=== PATIENT | male | born 1925 | race Caucasian/White ===

== ENCOUNTER 2016-08-16 10:08 | Inpatient (IN) | payer MEDICARE, OTHER ==
[~2016-08-16] VITALS: Ht 172.7 cm; Wt 83.2 kg
[2016-08-16] VITALS (11 sets, daily range): BP systolic 117–183; BP diastolic 56–74; PULSE 68–94; RESP 15–22; O2SAT 88–100
[~2016-08-16 10:08] MED LIST: ALBU8.5H4 IH; ASPI-628 PO; ATOR20TA PO; AZIT250T4 PO; CHOL100043 PO; HYDR-4003 PO; LEVO100T97 PO; METO50TA3 PO; OMEP-113 PO; VITA1CAP PO
--- NOTE | 2016-08-16 10:16 | ED.REPORT ---
HPI-Abd Pain M 40 and Over Date of Service Aug 16, 2016 ED Provider: Nidia Pineda MD The patient is a 89 year old male w/ a hx of HTN who presents to the ED via EMS due to abdominal pain onset today 2 hrs ago. He was eating breakfast when he began experiencing the pain. He had a previous aortic bypass. He rates pain at 8 /10 in severity. Pt denies chest pain. He lives in the non-assisted [facility]. Nursing Notes Stated Complaint: ABDOMINAL PAIN Chief Complaint: Male Abdominal Pain Nursing Notes Reviewed: Yes Allergies: Coded Allergies: No Known Allergies (Verified , 12/13/13) Scheduled Aspirin (Aspir 81) 81 Mg Tablet.dr 81 MG PO QAM Atorvastatin Calcium (Atorvastatin Calcium) 40 Mg Tablet 40 MG PO HS Azithromycin (Zithromax (Z-Cesario)) 250 Mg Tablet 250 MG PO DAILY Cholecalciferol (Vitamin D3) (Vitamin D) 1,000 Unit Tablet 1,000 UNIT PO DAILY Levothyroxine (Levothyroxine) 112 Mcg Tablet 112 MCG PO DAILY Metoprolol Tartrate (Metoprolol Tartrate) 25 Mg Tablet 25 MG PO BID Scheduled PRN Albuterol HFA (Albuterol HFA) 8.5 Gm Hfa.aer.ad 1 PUFF IH Q4 PRN PRN For Wheezing General Time Seen by MD: 10:16 Chief Complaint Abdominal pain Hx Obtained From: Patient Arrived By: Ambulance Sudden in Onset?: Yes Onset Occurred: 1 - 4 hours ago Context of Onset: Eating Symptom Duration: Since onset Progression since Onset: Unchanged Location: : Abdomen lower: Abdomen upper Quality: Painful Radiation: : Does not radiate Severity: Current: Pain level 8 out of 10 Recent Healthcare: No recent doctor visit, No recent hospitalization Similar Sx Previous: No Past Medical History Past Medical History DNR per polst form. Would agree to surgery if required. Reports: Hyperlipidemia, Hypertension Reports: Thyroid disease Past Surgical History hernia abdominal surgery aortic bypass right coroded surgery Social History Alcohol Use: 1-3 per week Ambulatory Status Independent Review of Systems Cardiovascular: Denies: Chest pain GI: Reports: Abdominal pain Complete sys rev & neg: except as marked. Physical Exam Physical Exam Notes: Initial Vital Signs Vital Signs (First) Date Time Temp Pulse Resp B/P Pulse Ox O2 Delivery O2 Flow Rate FiO2 08/16/16 10:09 36.4 68 21 183/58 98 Room Air 08/16/16 11:37 4 Initial VS: Reviewed Head / Eyes: Atraumatic, Normocephalic, PERRL ENT: Mucous membranes moist, Conjunctiva normal, No scleral icterus Neck: Supple, Non-tender, Full range of motion Skin: Warm, Dry, No cyanosis Neurologic: Alert, Oriented, Nonfocal Psychiatric: Mood/affect normal, Behavior normal, Normal thought content General/Constitutional: Awake, Alert, Cooperative Respiratory / Chest: No respiratory distress, No rales, No rhonchi minor bilateral crackles in lungs Cardiovascular: Regular rhythm, Heart sounds NL, No murmurs Heart Rate / Rhythm: Positive: Bradycardia Bowel Sounds / Distention: Positive: Bowel sounds hypoactive slightly tender periumbical tender into right middle portion of belly no rebound or guarding no abdominal bruise no abdominal masses Lower Extremity / Pelvis / MS: Atraumatic, Inspection NL, No swelling, No erythema, No edema good right inguinal pulse do not palpate a left inguinal pulse but good color to leg Interpretation & Diagnostics Lab Results Interpretation Result Diagram: 08/16/16 1038 08/16/16 1038 Test 08/16/16 10:38 White Blood Count 12.4th/mm3 (3.8-10.1) Red Blood Count 3.73mil/mm3 (4.40-5.80) Hemoglobin 12.5g/dL (13.8-17.2) Hematocrit 39.2% (41.0-50.0) Mean Corpuscular Volume 105.1fL (81-100) Mean Corpuscular Hemoglobin 33.5pg (27.0-35.0) Mean Corpuscular Hemoglobin Concent 31.9% (32.0-37.0) Red Cell Distribution Width 13.0% (12.3-15.4) Platelet Count 181bil/L (150-400) Neutrophils (%) (Auto) 42.1% (40-74) Lymphocytes (%) (Auto) 49.3% (14-46) Monocytes (%) (Auto) 6.5% (4-12) Eosinophils (%) (Auto) 1.5% (0-5) Basophils (%) (Auto) 0.5% (0-3) Sodium Level 139mEq/L (134-144) Potassium Level 4.5mEq/L (3.5-5.2) Chloride Level 101mEq/L (97-108) Carbon Dioxide Level 24mmol/L (18-29) Blood Urea Nitrogen 20mg/dL (8-27) Creatinine 1.34mg/dL (0.76-1.27) Estimat Glomerular Filtration Rate 53mL/min (>59) Glucose Level 128mg/dL (60-99) Calcium Level 8.6mg/dL (8.5-10.1) Magnesium Level 2.0mg/dL (1.6-2.6) Total Bilirubin 0.8mg/dL (0.0-1.2) Aspartate Amino Transf (AST/SGOT) 40U/L (0-50) Alanine Aminotransferase (ALT/SGPT) 24U/L (0-44) Alkaline Phosphatase 112U/L (25-160) Total Protein 6.8g/dL (6.4-8.4) Albumin 3.6g/dL (3.4-5.0) Lipase 1911U/L (13-60) ECG Interpretation Time: 10:56 Interpreted by: ED physician Normal ECG Interpretation: Normal rate (68), Normal sinus rhythm, No acute ischemic changes, Normal QRS, Normal axis, Normal intervals, No change from prior ECGs, Adequate tracing CT Abd / Pelvis Interpretation IMPRESSION: 1. Findings most adjustment of acute pancreatitis; clinical and laboratory confirmation is recommended. No evidence of marilu-pancreatic abscess, nor focal fluid collection. 2. Asbestos-related pleural disease. 3. Severe right renal atrophy. Dictated by: Kathleen Hodge M.D. on 08/16/2016 at 12:17 Approved by: Kathleen Hodge M.D. on 08/16/2016 at 12:22 Study type: Abdominal CT no contrast Interpretation / Wet Read by: Discussed w radiologist Re-Eval/Medical Decision Med Decision/Clinical Course 11-year-old gentleman presents with acute onset abdominal pain. Labs and CT scan are all consistent with pancreatitis. CT scan does not suggest an obstructing mass nor gallstone pancreatitis. Medications include metoprolol thyroid and atorvastatin none of which occurred glaringly obvious for a cause of his pancreatitis. We will be admitted for fluids and nausea control pain control and bowel rest. CT scan does not suggest abscess or pseudo abscess. Time of Eval: 13:17 Patient Status: Condition unchanged Re-Evaluation/Progress Note: Pt rechecked. Dry mouth, O2 sats 90%, still having pain w/ dilaudid. Informed pt of diagnosis of pancreatitis and plan for admission. Consultation : Referral / Consult Name: Luiz Bergman DO Consulted With: Hospitalist Call Returned at: 13:36 Net Lead Architect: Agrees with eval, Agrees with plan Note: Case discussed. Dr. Bergman agrees with plan and accepts admit. Counseled Regarding: Diagnosis, Lab results, Need for admission Discharge & Departure Primary Impression: Pancreatitis Chronicity: acute Pancreatitis type: unspecified pancreatitis type Qualified Code: K85.9 - Acute pancreatitis, unspecified Disposition: ADMITTED TO HOSPITAL Vital Signs - All Vital Signs Date Time Temp Pulse Resp B/P Pulse Ox O2 Delivery O2 Flow Rate FiO2 08/16/16 13:03 78 19 137/61 94 Room Air 08/16/16 12:10 79 15 126/56 88 Nasal Cannula 4 08/16/16 11:37 70 16 144/62 93 4 08/16/16 10:44 70 22 177/63 96 Room Air 08/16/16 10:09 36.4 68 21 183/58 98 Room Air )( All Prior VS Reviewed: Yes Condition: Stable Referrals: Bianca Mccall MD (PCP) Scribe Attestation Portion of this note were transcribed by Luh Hussein. I, Dr. Pineda, personally performed the history, physical exam, and medical decision-making: I reviewed and confirmed the accuracy for the information in the transcribed note. Signed by: rebeka Canales, 08/16/16 1330 copies to: Bianca Mccall MD, Shawna L MD Aug 16, 2016 10:16 Luh Hussein Aug 16, 2016 10:25
[2016-08-16] MEDS ORDERED: 0.9% Sodium Chloride 1,000 ML IV ONE (10:35)
[2016-08-16 10:41] LABS: BASOPHILS % (AUTO) 0.5 % (0-3); EOSINOPHILS % (AUTO) 1.5 % (0-5); MONOCYTES % (AUTO) 6.5 % (4-12); Mean Corpuscular Hemoglobin 33.5 pg (27.0-35.0); Mean Corpuscular Volume 105.1 fL (81-100); NEUTROPHILS % (AUTO) 42.1 % (40-74); Platelet Count 181 bil/L (150-400)
[2016-08-16] MEDS: HYDROmorphone 0.5 mg/0.5 mL iSecure Syringe IVPUSH PRN ×2 (10:44→11:44)
[2016-08-16] MEDS: Ondansetron 2 mg/mL 2 mL Inj IVPUSH PRN ×4 (10:44→23:10)
--- NOTE | 2016-08-16 12:24 | DRSVH ---
PROCEDURE: CT ABDOMEN AND PELVIS WITH CONTRAST ([id number]) INDICATIONS: acute onset abdominal pain TECHNIQUE: After the administration of intravenous contrast, 5 mm thick sections acquired from the diaphragm to the symphysis. 5 mm coronal and sagittal reformats were acquired. For radiation dose reduction, the following was used: automated exposure control, adjustment of mA and/or kV according to patient siz e. COMPARISON: [facility], CT, ABD/PELVIS W/CON (PN), 12/02/2008, 17:21. FINDINGS: Image quality: Excellent. ABDOMEN: Lung bases: Bilateral right greater than left pleural calcifications are present, in a configuration suggestive of asbestos related pleural disease. Lung bases are otherwise clear. Heart size is normal . Solid organs: Liver and spleen are normal in size and enhancement. Gallbladder is within normal cohen its. Biliary system is non dilated. Pancreas enhances normally. There is mild peripancreatic fat s tranding. Small amount of peripancreatic fluid and left anterior pararenal space fluid is present, ne w since the prior examination. No adrenal nodules. No change in severe right renal atrophy. Left kidn ey is within normal limits. Peritoneum and bowel: Bowel loops demonstrate normal wall thickness and caliber. No free fluid or a ir. Nodes and vessels: No retroperitoneal or mesenteric adenopathy by size criteria. Aorta and inferior vena cava are normal in size. Aortobifemoral bypass graft has been performed. Miscellaneous: No ventral hernias. PELVIS: Genitourinary: Bladder wall thickness is normal. Miscellaneous: No inguinal hernias or adenopathy. Bones: No suspicious bony lesions. N mild chronic L1 compression fracture. o acute vertebral body c ompression fractures. IMPRESSION: 1. Findings most adjustment of acute pancreatitis; clinical and laboratory confirmation is recommende d. No evidence of marilu-pancreatic abscess, nor focal fluid collection. 2. Asbestos-related pleural disease. 3. Severe right renal atrophy. Dictated by: Kathleen Hodge M.D. on 08/16/2016 at 12:17 Approved by: Kathleen Hodge M.D. on 08/16/2016 at 12:22
[2016-08-16] MEDS ORDERED: LEVO112T4 PO (13:33)
[2016-08-16] MEDS ORDERED: ATOR40TA69 PO (13:33)
[2016-08-16] MEDS ORDERED: METO25TA6 PO (13:33)
[2016-08-16] MEDS ORDERED: ASPI-973 PO (13:34)
[2016-08-16] MEDS ORDERED: Polyethylene Glycol (PEG) 17 Gm Powder PO PRN (13:40)
[2016-08-16] MEDS ORDERED: Alum-Mag Hydrox-Simeth 30 mL Suspension PO PRN (13:40)
[2016-08-16] MEDS ORDERED: Acetaminophen IV 1,000 MG in IV Premix 1 EACH IV ONE (14:00)
[2016-08-16] MEDS: fentaNYL-PF 50 mCg/mL 2 mL Inj IVPUSH PRN ×4 (14:03→22:53)
[2016-08-16] MEDS: 0.9% Sodium Chloride 1,000 ML IV SCH (15:14)
--- NOTE | 2016-08-16 15:16 | PCM.HPMED ---
Subjective Date of Service Aug 16, 2016 Primary Provider: Admitting Physician: Luiz Bergman DO Primary Care Physician: Ankit Eaton MD Attending Physician: Luiz Bergman DO Chief Complaint: Abdominal pain History of Present Illness: Vicenta Vaughan is an 89 year old man with past medical history significant for asbestosis, aortic bypass at the age of 37, renal artery stent for renal artery stenosis, hypothyroidism, atherosclerotic cerebrovascular disease, status post right carotid endarterectomy who presented to the [facility] ED via EMS due to severe abdominal pain that started at 0800 today. The patient was reading the paper when he started to an acute onset of severe pain that he cannot describe very well. He does not know the quality of the pain and denies any radiation. He notes nausea and vomiting, although the vomiting occurred after he received pain medication. He has no appetite and denies any fevers or chills. The pain is not relieved with any position. He notes that his pain is epigastric and he has never experienced this pain before. He denies any episodes of more minor pain that lead up to the event. He denies any history of gallstones. He does have a bourbon nightly. He denies any medications changes. He lives in the [facility]city hospital section [facility]. In the ED his vitals were T 36.4 HR 68 RR 21 BP 183/58 and O2 sat 98% on RA. CT of abdomen was consistent with pancreatitis and his labs were significant for a lipase of 1911. He was given hydrocodone and fentanyl which made him sedated and dropped his O2 saturation. Review of Systems: A comprehensive review of systems was conducted with the patient and found to be negative except as above in the History of Present Illness. Allergies Coded Allergies: No Known Allergies (Verified , 08/16/16) Home Medications Vicenta Vaughan [id number] 06/10/2016 01:35 PM 06/15 Medication Name Directions aspirin 81 mg Tab take 1 tablet (81MG) by ORAL route every day atorvastatin 40 mg tablet TAKE ONE TABLET DAILY (REPLACES SIMVASTATIN) levothyroxine 100 mcg tablet take 1 tablet by oral route every day metoprolol tartrate 50 mg tablet take 0.5 tablet by ORAL route 2 times every day with meals for heart Super B-50 Complex capsule 1 daily Vitamin D 1,000 unit Tab 1 capsule PO daily [facility] Asbestosis. Renal artery stent for renal artery stenosis about 10 years ago. Apparently, he had renal vascular hypertension. Hypothyroidism. Surgical History Aortic bypass at the age of 37. Atherosclerotic cerebrovascular disease, status post right carotid endarterectomy by Dr. Benjy Hwang Family History Father of old age. Mother of pneumonia. Social History Hx Alcohol Use: Yes (1-3 per week) Hx Substance Use: No Hx Tobacco Use: No Smoking Status: Former Smoker Exam Vital Signs Vital Sign - Last Date Time Temp Pulse Resp B/P Pulse Ox O2 Delivery O2 Flow Rate FiO2 08/16/16 14:59 94 08/16/16 14:20 36.4 20 133/68 100 Room Air 6 Exam General: No acute distress, well-developed, well-nourished, appropriately interactive. Somewhat sedated. Easy to awake by drifts off to sleep when not stimulated. HEENT: Normocephalic, atraumatic. External ears without defect. Pupils equal, round, and reactive to light and accommodation. Anicteric sclerae, moist conjunctivae, and no lid lag. Oropharynx free of erythema and cobble stoning with dry mucosa. Mild skin tenting. Neck: Supple with full range of motion. No jugular venous distension. No bruits. No lymphadenopathy or thyromegaly. Cardiovascular: Regular rate and rhythm with no murmurs, rubs, or gallops appreciated Pulmonary: Clear to auscultation bilaterally with no crackles, wheezes, or rhonchi. Normal respiratory effort with no use of accessory muscles. Abdomen: Hyperactive bowel tones present. Soft, nondistended. Tender to even mild palpation over the epigastrium. No hepatosplenomegaly or masses appreciated. Extremities: No clubbing, cyanosis, edema, or lymphadenopathy appreciated. Skin: Normal temperature, turgor, and texture; no rash, ulcers, or subcutaneous nodules appreciated. Neurological: Cranial nerves grossly intact. Normal muscle strength, tone, and bulk. Reflexes, coordination, and sensory function within normal limits. No known gait impairment. Psychiatric: Normal mood and affect. Alert and oriented to person, place, and time. Lab and Diagnostics Labs Lipase: 191 Result Diagram: 08/16/16 1038 08/16/16 1038 X-Rays, CTs and MRIs CT ABDOMEN AND PELVIS WITH CONTRAST IMPRESSION: 1. Findings most adjustment of acute pancreatitis; clinical and laboratory confirmation is recommended. No evidence of marilu-pancreatic abscess, nor focal fluid collection. 2. Asbestos-related pleural disease. 3. Severe right renal atrophy. Dictated by: Kathleen Hodge M.D. on 08/16/2016 at 12:17 Assessment & Plan Vicenta Vaughan is an 89 year old man with past medical history significant for asbestosis, aortic bypass at the age of 37, renal artery stent for renal artery stenosis, hypothyroidism, atherosclerotic cerebrovascular disease, status post right carotid endarterectomy who presented to the [facility] ED via EMS due to severe abdominal pain that started at 0800 today. Acute pancreatitis -Lipase significantly elevated and evidence of pancreatitis on CT, however etiology is not quite clear. The patient does admit to some alcohol use but his LFTs are normal and his liver contour is normal as well. Of note his MCV is quite elevated which can indicated megaloblastic anemia but can also be seen in non-megaloblastic anemia secondary to direct toxicity of EtOH on the bone marrow. He denies any medication changes and none of his chronic medications seem to be culprits for pancreatitis. He does not have any biliary stones but it is possible he has passed one, albeit unlikely. Possibly viral. -Will continue to fluid resuscitation at 150 cc/hr. His Hct is <40 which is reassuring. No signs of CHF. -He is currently NPO but will advance diet when he begins to feel hunger. -Continue Zofran for nausea management. Will consider NGT if nausea is not well controlled. -No indication for antibiotics at this time. -Pain management does pose some difficulty as his respiratory status seems to decline with narcotics -Will reduce fentanyl to 12.5 mcg since 50 mcg sedated him pretty significantly Adverse medication reaction -Patient became very somnolent in response to narcotics -Will reduce dosing, discussed minimal doses with RN -PRN order of Narcan in case his respiratory status declines -Continuous pulse oxymetry -ABG History of pulmonary asbestosis -Chest X ray Hypothyroidism -Will resume levothyroxine when able to tolerate PO Atherosclerotic cerebrovascular disease, status post right carotid endarterectomy -Continue statin and ASA when able to tolerate PO. History of renal artery stent for renal artery stenosis -Likely his elevated Cr is due to essentially a solitary kidney since one of his kidneys has atrophied. Chronic kidney disease -Continue to monitor Cr -Baseline appears to be around 1.2 per outpatient records from 2013 CODE STATUS: DNR/DNI Patient is admitted under inpatient status with expected length of stay greater than 2 midnights due to severity of presenting symptoms, risk of adverse event, and complexity of treatment plan. Time spent 55 minutes Attending Statement I have seen and evaluated patient at bedside in addition to directly supervising care provided by resident physician. I agree with above documentation. Deanna Tang DO Aug 16, 2016 15:16 Luiz Bergman DO Aug 16, 2016 16:26
--- NOTE | 2016-08-16 15:26 | NUR ---
Arrival to [facility] Pt goes to ER today with sharp 8-10/10 pain in the abdomen after eating breakfast this morning. Pt has associated nausea and vomiting. No Fever, chills noted. Pt was found to have pancreatitis. Pt denies having this before. Pt placed on continuos oximeter for respiratory depression post opioids. Pt placed on 4LNC, as his oxygen sats dropped into the 70's from Fentanyl.
[2016-08-16] MEDS ORDERED: Naloxone 0.4 mg/mL 10 mL Inj IVPUSH PRN (15:55)
--- NOTE | 2016-08-16 17:04 | DRSVH ---
PROCEDURE: X-RAY CHEST ONE VIEW, PORTABLE ([id number]) INDICATIONS: asbestosis history, hypoxemia. TECHNIQUE: One view of the chest was acquired. COMPARISON: [facility], CR, XR CHEST 2VW, FINDINGS: Surgical changes and devices: panel monitor leads are seen over the chest. There prominent calcifie d plaques in both sides of the chest. There is increased density at the lung bases next patchy streak y appearance with some indistinctness of the right hemidiaphragm and lateral left hemidiaphragm consi stent with pneumonias. Lungs and pleura: No pleural effusions or pneumothorax. Lungs are clear. Mediastinum: Mediastinal contours appear normal. Heart size is normal. Bones and chest wall: No suspicious bony lesions. Overlying soft tissues appear unremarkable. IMPRESSION: Changes suggestive of bibasilar infiltrates. Prominent calcific plaquing. Old asbestos exposure is likely. Dictated by: Kenny Basilio M.D. on 08/16/2016 at 17:02 Approved by: Kenny Basilio M.D. on 08/16/2016 at 17:04
[2016-08-16 18:22] LABS: INR 0.97 ratio
[2016-08-16 19:00] LABS: APPEARANCE,URINE CLEAR (CLEAR,HAZY); COLOR,URINE YELLOW (YELLOW); OCCULT BLOOD,URINE SMALL (NEGATIVE); UROBILINOGEN,URINE NORMAL (NORMAL)
[2016-08-17] MEDS: 0.9% Sodium Chloride 1,000 ML IV SCH ×6 (00:55→20:52)
[2016-08-17] MEDS: Ondansetron 2 mg/mL 2 mL Inj IVPUSH PRN ×2 (04:59→12:40)
[2016-08-17 05:13] VITALS: BP 136/66; PULSE 100; RESP 20; O2SAT 97
--- NOTE | 2016-08-17 05:41 | NUR ---
pain/nausea/activity Pt c/o 9/10 abdominal pain in the beginning of shift, 3hr after morphine administration. Fentanyl given slowly; 4mcg of Fentanyl given and pt has been dozing off; RR 20-24. SpO2 in high 90s on 4L NC. another 5mcg of Fentanyl given after 3hrs. 8mg of Zofran given for nausea; pt had approximately 50mL of green bile emesis with undigested food. nausea resolved. c/o 10/10 abdominal pain before the next Fentanyl dose is due. 1mg of Morphine given with good relief. able to sleep for 4hrs w/o respiratory distress. RR 18-20; O2 titrated and switched over to oxymask because pt is a mouth breather. SpO2 in high 90s on 2L O2. Pt weak and needed 1PA to BSC, bed alarm on for safety/
[2016-08-17 09:07] LABS: BASOPHILS % (AUTO) 0.1 % (0-3); EOSINOPHILS % (AUTO) 0.2 % (0-5); MONOCYTES % (AUTO) 4.2 % (4-12); Mean Corpuscular Hemoglobin 34.2 pg (27.0-35.0); Mean Corpuscular Volume 107.9 fL (81-100); Platelet Count 177 bil/L (150-400)
[2016-08-17] MEDS ORDERED: 0.9% Sodium Chloride 500 ML IV ONE (11:35)
[2016-08-17 12:07] VITALS: BP 145/65; PULSE 104; RESP 20; O2SAT 93
--- NOTE | 2016-08-17 12:44 | NUR ---
Pain/Nausea/Resp: Complains of abdominal pain 8/10 on pain scale. Morphine IV administered. Will continue to follow for comfort. Complains of nausea. Zofran administered. Will continue to follow. O2 2L oxy mask, O2 saturation 97%, RR 20. O2 sats decrease to 89-90% when taking oxy mask off. Addendum: 08/17/16 at 1657 by IRMA MCKNIGHT RN Patient continues to have intermittent sharp shooting pain 9-10/10 on pain scale. Morphine administered as needed.
--- NOTE | 2016-08-17 14:47 | PCM.CHPMED ---
Subjective Date of Service: Aug 17, 2016 Provider requesting consult: Mellisa Chatman DO Primary Physician: Admitting Physician: Luiz Bergman DO Primary Care Physician: Ankit Eaton MD Attending Physician: Luiz Bergman DO Chief Complaint: Chief Complaint: REASON FOR GI CONSULT: Abdominal pain, elevated LFTs, elevated lipase History of Present Illness: Mr. 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 He was admitted for acute pancreatitis. GI was consulted for further evaluation and treatment of acute pancreatitis, elevated liver enzymes, and abdominal pain. He states this abdominal pain is new, and he has no history of similar. Denies any history of GI issues other than occasional reflux. States the pain is sharp , stabbing, intermittent, diffuse, but notably of epigastric region. Admits to associated decreased po intake, nausea, and 1-2 episodes of vomiting. No emesis or diarrhea noted since admission. States he has not had a BM in recent 4-5 days. No recent history of diarrhea, fever, chills, sick contacts. Lives at [place]. Reports previous episode of flu-like symptoms many weeks ago, of which, he believes he was prescribed an antibiotic. Does not wear O2 at baseline. Does not currently feel SOB at rest, unless he is experiencing an episode of his abdominal pain. He states that he has been drinking alcohol daily for the recent 10-12 years since his , totalling a shot-glass sized amount of whiskey mixed with water. He denies consuming amounts larger than this. He stopped smoking 'many years ago.' He states he has a history of unremarkable colonoscopies, and does not recall a history of EGD. Denies any blood transfusions, autoimmune disorders, history of gallstones or pancreatitis. States his aortic bypass was secondary to his aorta being 'clogged up.' His initial symptoms were inability to walk. He was a smoker at that time. GI consulted to evaluate abdominal pain, elevated LFTs, elevated lipase; possible worsening pancreatitis. H Past Medical History Asbestosis. Renal artery stenosis s/p stent placement Hypothyroidism Surgical History Aortic bypass at the age of 37 Atherosclerotic cerebrovascular disease, status post right carotid endarterectomy by Dr. Benjy Hwang Renal artery stent placement, right-sided secondary to MANUEL Home Medications Vicenta Vaughan [id number] 1925 06/10/2016 01:35 PM 06/15 Medication Name Directions aspirin 81 mg Tab take 1 tablet (81MG) by ORAL route every day atorvastatin 40 mg tablet TAKE ONE TABLET DAILY (REPLACES SIMVASTATIN) levothyroxine 100 mcg tablet take 1 tablet by oral route every day metoprolol tartrate 50 mg tablet take 0.5 tablet by ORAL route 2 times every day with meals for heart Super B-50 Complex capsule 1 daily Vitamin D 1,000 unit Tab 1 capsule PO daily Allergies: Coded Allergies: hydromorphone (Verified Allergy, Severe, 08/16/16) Respiratory depression Family History Family History States brothers (x) has cancer, but patient is unaware of details/type, but they survived with treatment including chemo and excision Social History Hx Alcohol Use: Yes (1-3 per week)Hx Substance Use: NoHx Tobacco Use: No Smoking Status: Former Smoker Exam Vital Signs Vital Sign - Last Date Time Temp Pulse Resp B/P Pulse Ox O2 Delivery O2 Flow Rate FiO2 08/17/16 12:07 36.8 104 20 145/65 93 OxyMask 2.00 Intake and Output 08/16/16 08/16/16 08/17/16 Cumulative From/Thru 15:00 23:00 07:00 08/16/16 10:09 - 08/17/16 06:16 Intake Total 1000 ml 0 ml 1905 ml 2905 ml Output Total 0 ml 0 ml Balance 1000 ml 0 ml 1905 ml 2905 ml Intake Oral 0 ml 0 ml IV Total 1000 ml 1905 ml 2905 ml Output Urine Total 0 ml 0 ml # Bowel Movements 0 0 General: Alert, Oriented X3, Cooperative, Moderate Distress (associated with pain episodes) Head: Normal Eyes: EOMI, Scleral Anicteric Nose: Mucous Membr Moist/Makoti Mouth: Mucous Membr Moist/[place] Chest & Lungs: Auscultation (adequate flow all alvarado; no coarse counds), Expiratory wheezes (mild, bilateral, upper alvarado) Cardiovascular: Regular Rate/Rhythm Pulses: Radial (equal and bilateral), Post Tibial (equal and bilateral) Abdomen: Tender (diffusely, exquisitely tender), Distended Musculoskeletal: Normal Range of Motion Extremities: No cyanosis/clubbing/edma bilat Skin: Other (ecchymotic lesions BLUE secondary to phleb draws) Lab and Diagnostics Result Diagram: 08/17/1654408/17/16544 Assessment & Plan Assessment GASTROENTEROLOGY CONSULTATION NOTE Mr. 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 He was admitted for acute pancreatitis. GI was consulted for further evaluation and treatment of acute pancreatitis, elevated liver enzymes, and abdominal pain. 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 Assessments - Acute pancreatitis - Acute aminotransaminitis - Severe abdominal pain Plan/Recommendations - Increase fluids to 200cc/hr; can be NS or LR - Keep NPO - Manage pain as best suited to patient's tolerance and sensitivity to medications - Obtain MRCP - Agree with CRP; and PCT, LA to assess for underlying infection - Agree with addition of Zosyn at this time; will defer to ID team, appreciate time and recs Thank you for this most interesting consult, we will happily follow along with you at this time. Please do not hesitate to contact us with any questions or concerns you may have. Total time: 60 minutes Problems: VTE Mechanical Devices: Intermittant Pneumatic CD Attending Statement Pt seen and examined with resident physician I agree with her H and P My assessment is that he has gallstone pancreatitis with choledocholithiasis as seen on MRCP Agree with IV antibiotics as his WBC has increased IV Fluid resuscitation for pancreatitis, however would closely monitor his I/O so that he does develop pulmonary edema or respiratory distress Pain control NPO Plan for ERCP tomorrow then will need cholecystectomy. Latasha Grullon DO Aug 17, 2016 13:45 Kartik Johnson MD Aug 17, 2016 22:19
--- NOTE | 2016-08-17 15:25 | PCM.PNMED ---
Subjective Date of Service Aug 17, 2016 Subjective Vicenta Vaughan is an 89 year old man with past medical history significant for asbestosis, aortic bypass at the age of 37, renal artery stent for renal artery stenosis, hypothyroidism, atherosclerotic cerebrovascular disease, status post right carotid endarterectomy who presented to the [facility] ED via EMS due to severe abdominal pain that started at 0800 yesterday. This morning, he reports that he continues to have abdominal pain, nausea, and a decreased appetite. He is not interested in trying to eat. He had a bowel movement yesterday that was normal. He does not have fever, chills, or vomiting. Exam Vital Signs Vital Sign - Last Date Time Temp Pulse Resp B/P Pulse Ox O2 Delivery O2 Flow Rate FiO2 08/17/16 14:18 Supplement Oxygen 08/17/16 12:07 36.8 104 20 145/65 93 2.00 Intake and Output 08/16/16 08/16/16 08/17/16 Cumulative From/Thru 15:00 23:00 07:00 08/16/16 10:09 - 08/17/16 06:16 Intake Total 1000 ml 0 ml 1905 ml 2905 ml Output Total 0 ml 0 ml Balance 1000 ml 0 ml 1905 ml 2905 ml Intake Oral 0 ml 0 ml IV Total 1000 ml 1905 ml 2905 ml Output Urine Total 0 ml 0 ml # Bowel Movements 0 0 Exam General: Awake and alert. No acute distress, well-developed, well-nourished, appropriately interactive.. HEENT: Normocephalic, atraumatic. External ears without defect. Pupils equal, round, and reactive to light and accommodation. Anicteric sclerae, moist conjunctivae, and no lid lag. Neck: Supple with full range of motion. No jugular venous distension. No lymphadenopathy or thyromegaly. Cardiovascular: Regular rate and rhythm with no murmurs, rubs, or gallops appreciated Pulmonary: Clear to auscultation bilaterally with no crackles, wheezes, or rhonchi. Normal respiratory effort with no use of accessory muscles. Abdomen: Hyperactive bowel tones present. Soft, nondistended. Tender to even mild palpation over the epigastrium. No hepatosplenomegaly or masses appreciated. Extremities: No clubbing, cyanosis, edema, or lymphadenopathy appreciated. Skin: Normal temperature, turgor, and texture; no rash, ulcers, or subcutaneous nodules appreciated. Neurological: Cranial nerves grossly intact. Normal muscle strength, tone, and bulk. . Psychiatric: Normal mood and affect. Alert and oriented to person, place, and time. IVs and Medications Medications Reviewed: Medications were reviewed in detail Lab and Diagnostics Result Diagram: 08/17/16 0545 08/17/16 1400 X-Rays, CTs and MRIs CT ABDOMEN AND PELVIS WITH CONTRAST IMPRESSION: 1. Findings most adjustment of acute pancreatitis; clinical and laboratory confirmation is recommended. No evidence of marilu-pancreatic abscess, nor focal fluid collection. 2. Asbestos-related pleural disease. 3. Severe right renal atrophy. Dictated by: Kathleen Hodge M.D. on 08/16/2016 at 12:17 PROCEDURE: X-RAY CHEST ONE VIEW, PORTABLE IMPRESSION: Changes suggestive of bibasilar infiltrates. Prominent calcific plaquing. Old asbestos exposure is likely. Approved by: Kenny Basilio M.D. on 08/16/2016 at 17:04 Assessment & Plan Vicenta Vaughan is an 89 year old man with past medical history significant for asbestosis, aortic bypass at the age of 37, renal artery stent for renal artery stenosis, hypothyroidism, atherosclerotic cerebrovascular disease, status post right carotid endarterectomy who presented to the [facility] ED via EMS due to severe abdominal pain that started at 0800 today. Acute pancreatitis, present on admission, active. -Lipase significantly elevated and evidence of pancreatitis on CT, however etiology is not quite clear. The patient does admit to some alcohol use but his LFTs were initially normal and his liver contour is normal as well. Of note his MCV is quite elevated which can indicated megaloblastic anemia but can also be seen in non-megaloblastic anemia secondary to direct toxicity of EtOH on the bone marrow. He denies any medication changes and none of his chronic medications seem to be culprits for pancreatitis. He does not have any biliary stones but it is possible he has passed one, albeit unlikely. Possibly viral. -Will continue to fluid resuscitation at 200 cc/hr, per gastroenterology. His Hct is now >40. No signs of CHF. -He is currently NPO but will advance diet when he begins to feel hunger. -Continue Zofran for nausea management. Will consider NGT if nausea is not well controlled. -Pain management does pose some difficulty as his respiratory status seems to decline with narcotics -Will continue fentanyl reduced to 12.5 mcg since 50 mcg sedated him pretty significantly -Started IV Zosyn since patient's WBC has elevated even more today along with elevated liver enzymes, CRP, procalcitonin, lactic acid. -MRCP ordered -Gastroenterology consulted and following. Their time and recommendations are appreciated. Acute sepsis, active. -Meets criteria with WBC 25.8 and heart rate of 100 bpm and possible pneumonia or infective pancreatitis -Continue IV fluids and antibiotics as above -Consider infectious disease consultation. Possible community acquired pneumonia, present on admission, active. -Chest x-ray shows bibasilar infiltrates and he have increasing WBC, CRP, procalcitonin, and lactic acid. However, lungs are clear to auscultation and no cough or dyspnea. -IV Zosyn as above Adverse medication reaction, present on admission, improved. -Patient became very somnolent in response to narcotics -Will reduce dosing, discussed minimal doses with RN -PRN order of Narcan in case his respiratory status declines -Continuous pulse oxymetry History of pulmonary asbestosis -Chest X ray as above Hypothyroidism -Will resume levothyroxine when able to tolerate PO Atherosclerotic cerebrovascular disease, status post right carotid endarterectomy -Continue statin and ASA when able to tolerate PO. History of renal artery stent for renal artery stenosis -Likely his elevated Cr is due to essentially a solitary kidney since one of his kidneys has atrophied. Patient also received Chronic kidney disease -Continue to monitor Cr -Baseline appears to be around 1.2 per outpatient records from 2013 CODE STATUS: DNR/DNI Patient is admitted under inpatient status with expected length of stay greater than 2 midnights due to severity of presenting symptoms, risk of adverse event, and complexity of treatment plan. VTE Mechanical Devices: Intermittant Pneumatic CD Time spent 30 minutes Attending Statement I have seen and evaluated patient at bedside in addition to directly supervising care provided by resident physician. I agree with above documentation. Mellisa Chatman DO Aug 17, 2016 15:25 Luiz Bergman DO Aug 18, 2016 07:56
--- NOTE | 2016-08-17 15:39 | NUR ---
Off Unit: Patient transported to [facility] @ approx 1530 via wheelchair accompanied by transporter. certified phlebotomy technician notified.
--- NOTE | 2016-08-17 16:16 | NUR ---
Social Work-initial assessment: Data & Assessment: See initial assessment. EMR Reviewed. Pt is a 89 y/o male who was admitted on 08/16/16 for Pancreatitis per H&P. Pt[facility] [employer] [facility] and PCP is Ankit Eaton MD. Pt's readmission score is 2-no risk. SW met with patient at bedside to discuss discharge planning, SW role explained and initial assessment complete. Pt is alert and oriented x3. Pt resides at [facility] where pt remains independent with basic ADLs. Pt uses a 4ww at baseline and does not drive. Pt has no HH or SNF history. Pt reported that his daughter, Joy Amador is his DPOA and he does have advanced directive. SW requested. Pt has no half-way care or VA benefits. Patient states that he will transport back to [place] via [place] transportation van. SW provided phone number and plan on white board in room. SW will continue to follow. Plan: Pt to likely discharge back to [facility]. SW will continue to follow patient for discharge planning needs. Sharon Ivy LMSW, BENJIE Addendum: 08/19/16 at 1629 by SHARON IVY Amended: Links added.
--- NOTE | 2016-08-17 16:22 | DRSVH ---
PROCEDURE: MRI ABDOMEN WITHOUT CONTRAST ([id number]) INDICATIONS: acute pancreatitis, ?obstructing stones TECHNIQUE: Coronal HASTE through the abdomen, axial 2-D FLASH in- and [id number], and breath-hold T2 FSE with fat saturation through the biliary system and pancreas. Oblique coronal and axial thin-slice HASTE, radial thick-slab HASTE centered on the extrahepatic bile ducts. Intravenous secretin: Not requested. COMPARISON: [facility], CT, CT ABD PELVIS W CON, 08/16/2016, 11:44. FINDINGS: Image quality: Degraded by motion artifact Pancreas and biliary system: Intra- and extra-hepatic biliary ducts are mildly distended. There is a 3 mm diameter low T2 intensity focus within the medial aspect of the distal common bile duct, which may indicate a partially obstructing calculus. Pancreas is normal in morphology, without adjacent so ft tissue edema. Pancreatic duct is normal in caliber, without developmental anomalies. Gallbladder demonstrates a small amount of surrounding fluid, and possible wall thickening. Other solid organs: Liver and spleen are normal in size. No adrenal nodules. Both kidneys are norm al in size, without hydronephrosis. Nodes and vessels: No retroperitoneal or mesenteric adenopathy by size criteria. Aorta and inferior vena cava are normal in size. Bowel and peritoneum: Unenhanced bowel loops are normal in caliber. There is a small amount of ascit es. Mild peripancreatic fat stranding is present. Lung bases: Small bilateral pleural effusions are present. Moderate right and mild left basilar airs pace opacity. Heart size is normal. Bones and soft tissues: No ventral hernias. Bone marrow is of normal overall signal. IMPRESSION: 1. Acute pancreatitis. 2. Possible small partially obstructing distal common bile duct calculus. This could be further asses sed with ERCP, if clinically indicated. 3. Right greater than left basilar pneumonia with small bilateral pleural effusions. 4. Small amount of ascites. 5. Possible gallbladder wall thickening, which could indicate cholecystitis. This could be further as sessed with ultrasound, if clinically indicated. 6. Findings discussed with Dr. Tee Baez on 08.17.16 at 1623 hrs. Dictated by: Kathleen Hodge M.D. on 08/17/2016 at 16:16 Transcribed by: SHARDA on 08/17/2016 at 16:22 Approved by: Kathleen Hodge M.D. on 08/17/2016 at 16:23
[2016-08-17] MEDS: Piperacillin-Tazo 3.375 Gm Inj 3.375 GM in Dextrose 5% Minibag Plus 50 ML IV SCH (16:23)
[2016-08-17 16:36] VITALS: BP 125/56; PULSE 112; RESP 20; O2SAT 91
--- NOTE | 2016-08-17 16:50 | NUR ---
UOP: Patient has only urinated 250ml thus far. Received total of 1750 IVF. Obtained bladder scan, 80mls. O2 sat 96% 2L o2 oxy mask. Addendum: 08/17/16 at 1711 by IRMA MCKNIGHT RN Javier Team R2 notified @ 1700. No new orders received. Addendum: 08/17/16 at 1815 by IRMA MCKNIGHT RN Patient had 1 additional void this shift however, unable to measure as he missed the urinal.
--- NOTE | 2016-08-17 17:28 | CONS ---
[address] [address] CONSULTATION REPORT PATIENT: CAMRON RIVER : 1925 MR#: [id number] ADMIT: 08/16/2016 JOB ID: [id number] DATE OF SERVICE: 08/17/[address] Tang for this timely consult. REASON FOR CONSULTATION: Leukocytosis in a patient with acute pancreatitis, possible pancreatic superinfection. HISTORY OF PRESENT ILLNESS: The patient is an 89-year-old gentleman with a complex past medical history including asbestosis, coronary artery disease, abdominal aortic aneurysm, hypothyroidism and possible history of CVA. The patient currently resides in an independent living apartment at the [facility]. He and his daughter relate to us that he is able to get around pretty good on his own despite some back troubles and difficulty ambulating through use of a walker and he is able to make his way around the facility. The patient tells us he was in his usual state of reasonably good health until yesterday when he got up and had breakfast without any problems. He then returned to his room, sat down and was reading the paper and developed very severe abdominal pain which led to his referral to the emergency department and to the discovery of the pancreatitis based upon lipase as well as on the CT scan. Initially, there was little concern about infection as the patient had no fevers or chills and did not appear overtly toxic, but today there has been concerns voiced about possible infection based on rapidly rising white blood count, and ID consultation is requested regarding the need for antibiotic coverage. The patient tells us throughout this 24 hours or so of illness, he has been free of fevers, chills, or sweats. He does not have sore throat and has not had any significant cough or shortness of breath. He states that his only real problem is very severe abdominal pain which started yesterday. It has been associated with nausea and at least one episode of emesis. He does not have diarrhea nor does he have urinary tract symptoms other than he has noted a drop-off in his urine output but no dysuria today. PAST MEDICAL HISTORY: 1. Asbestosis. 2. 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 3. Status post abdominal aortic surgery. 4. Hypothyroidism. 5. History of CVA though apparently not limiting in terms of his ambulation. 6. History of chronic and severe back pain. SOCIAL HISTORY: The patient is a of the [employer] occupation in [place] immediately following World War II. He smoked until about 35 years ago and quit. He and his daughter report that he has one drink of bourbon a night but not more than that. They report more or less standard size of one alcoholic drink. 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 FAMILY HISTORY: Negative for TB in any first-degree relatives. REVIEW OF SYSTEMS: Was done. The patient states he has no significant headache, visual change, sore throat or trouble swallowing. He denies stiff neck. He states he did have a cough that went on for several weeks as a result of lingering respiratory tract infection, but it is almost gone at this point. Today, he is not having any productive cough or significant shortness of breath. As noted in the HPI, he reports extremely severe abdominal pain beginning yesterday associated with nausea and one episode of vomiting. No diarrhea. No dysuria, urgency, or frequency though we has noticed a drop off in urine production. No complaints referable to the joints. No skin rash. No new neurologic findings. Remainder of the review of systems negative. PHYSICAL EXAMINATION: Reveals an afebrile gentleman, he has been afebrile since his admission about 30 hours ago. His current temp 36.8. Pulse 104. Respiratory rate 20. Blood pressure 145/65. Saturating well on 2 L. The patient is in obvious discomfort with spasms of very severe abdominal pain while we were examining and discussing the situation with the patient. His mental status is relatively clear though he does believe he is actually at the [place] facility at this moment and so there is a bit of disorientation with respect to location, but he quickly corrects when reminded of his current location. Head without trauma. Eyes without scleral icterus or conjunctivitis. Oral cavity: No thrush, pharyngitis or hairy leukoplakia. Nose normal. Neck is supple without adenopathy. Lungs: Relatively clear. Cardiac tones: Regular rate and rhythm without significant murmur or gallop. The abdomen is very tender even to light palpation, especially in the epigastrium. Bowel tones are very hypoactive. There is no suprapubic tenderness, and the patient does not currently have a Porter. Examination of the joints reveals no evidence of synovitis or significant impairment. The patient does not have any skin rash. Neurologically, he is quite strong in all four extremities, so it is unclear to me what the residual of his stroke, if any, represents. There is no peripheral stigmata of endocarditis and IV lines are in good position. LABORATORIES: Include a white blood count 12,000 yesterday. When he came to the ED today, it has doubled to 26,000 basically. MCV is large at 108. Platelet count is normal at 177. He has 90% segs. Creatinine 1.67, up from 1.34 yesterday. LFTs are notable for an AST of 547 and an ALT of 126. His albumin is 3.2. Procalcitonin 0.79 which is up from 0.08 yesterday. His lipase on admission was 1911. Urinalysis without white cells. IMAGING: Includes his initial abdominal CT scan when he came to the ED yesterday which shows acute pancreatitis. No abscess was noted. 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 Chest x-ray was notable for a prominent plaque and MRCP was just done and has not yet been read. IMPRESSION: This patient presents with pancreatitis of unknown etiology. The differential diagnosis here would include the possibility of a gallstone-associated process or biliary tract-associated process versus alcoholic etiology. 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 The patient reports that he has only one drink a day, but we are still a little unclear about how that drink is and he lives by himself, so we would have no other corroboration of his alcohol intake. We do await the MRCP to make sure there is no biliary disease present at this time. Whether or not to add antibiotics in a patient with pancreatitis is always difficult. The literature of 15-20 years ago suggests that if there was significant pancreatic necrosis, which is not yet the case here, that one could reasonably consider broad-spectrum antibiotics such as a carbapenem to reduce the risk of sepsis, but more recently, the literature is arguing against that point of view, and we typically do not use antibiotics in the setting of acute pancreatitis even if there is pancreatic necrosis without evidence or strong suspicion of ongoing infection. The problem here is that we have a very rapidly rising white count in a gentleman with some subtle bibasilar infiltrates on a chest x-ray as well as on his abdominal CT scan. I suspect he does not have a pneumonia, and it may be too early to move with antibiotics for his pancreatitis, but given his rapidly rising white count, I think it behooves us to cover him at least for the next day or two while we sort out this situation. RECOMMENDATIONS: 1. I agree with starting Zosyn. 2. We should obtain blood cultures on the off chance of capturing an organism prior to the initiation of the Zosyn. 3. We will closely follow his procalcitonin as this may give us some help in distinguishing a bacterial infection versus a pancreatic-associated leukocytosis. 4. This case discussed in detail with the attending as well as the GI gis consultant team.
[2016-08-17] MEDS: fentaNYL-PF 50 mCg/mL 2 mL Inj IVPUSH PRN ×2 (19:49→22:25)
--- NOTE | 2016-08-17 19:49 | DRSVH ---
PROCEDURE: US ABDOMEN, LIMITED ([id number]) INDICATIONS: PAIN, ?Cholecystitis. TECHNIQUE: Real-time focused scanning was performed of the abdomen, with image documentation. COMPARISON: None. FINDINGS: Because the patient is not able to take deep breaths and hold it is difficult to get good i mages of the gallbladder. The wall may be mildly thickened but no pericholecystic fluid is seen. No g all stones are seen. No sludge is seen. IMPRESSION: Fair to poor visualization of the gallbladder. Possible mild wall thickening but no peric holecystic fluid is seen. No abnormal contents are seen. Dictated by: Kenny Basilio M.D. on 08/17/2016 at 19:46 Approved by: Kenny Basilio M.D. on 08/17/2016 at 19:48
[2016-08-17 21:51] VITALS: BP 158/70; PULSE 116; RESP 22; O2SAT 95
[2016-08-18] VITALS (21 sets, daily range): BP systolic 92–117; BP diastolic 41–64; PULSE 82–106; RESP 15–32; O2SAT 89–96
--- NOTE | 2016-08-18 00:20 | NUR ---
Called to pt bedside by RN for breathing treatment. Upon arrival, pt sleeping soundly on 3LPM Oxymask, breath sounds are clear, and sats are 95%. Pt in no distress. Informed RN to notify me if pt gets up, or becomes short of breath and I will administer treatment then. I will recheck patient at 0400.
[2016-08-18] MEDS: Albuterol-Ipratropium 3 mL Inhalation Solution NEB PRN ×2 (02:31→09:47)
[2016-08-18] MEDS: 0.9% Sodium Chloride 1,000 ML IV SCH ×2 (02:45→07:44)
--- NOTE | 2016-08-18 03:50 | NUR ---
Pain/Respiratory/Mobility Patient has reported continual 8/10 abdominal pain, with short bursts of sharp pain. Administered 5mcg, then 6mcg of Fentanyl, four hours apart. Patient reports that pain is "not as bad", and appears comfortable in bed. Hypoactive bowel tones, distended abdomen. No bowel movements overnight. Patient has been on 2-3L oxymask overnight. Continuous pulse oximeter on finger shows saturations mid 90's at rest, but drops to 70's when oxygen is removed, or if patient is getting up out of bed. Fingers are cold, changed to an ear probe, and patient has been maintaining saturations in 90's. Respirations are within normal at rest, up to low 30's when in pain, getting up, or oxygen is removed. Patient has audible wheezes, RT administered PRN neb treatment with no change, but patient denies shortness of breath. Auscultation revealed fine crackles in bilateral bases, continuing to monitor with fluids infusing as ordered, NS @ 200 ml/hr. Patient has gotten up to stand to use urinal three times overnight. Patient is heavy 2PA with walker and appears to be very weak and short of breath with activity. Low urine output, 75ml, 50ml, and 125ml so far this shift, urine is dark herminia. MD aware. Bed alarm on for safety, call light within reach, intentional rounding. Multiple conversations with MD this shift with patient updates. MD came to assess patient around 1999, after first phone call with concerns.
[2016-08-18] MEDS: fentaNYL-PF 50 mCg/mL 2 mL Inj IVPUSH PRN (05:35)
[2016-08-18 05:45] LABS: Mean Corpuscular Hemoglobin 34.1 pg (27.0-35.0); Platelet Count 133 bil/L (150-400)
[2016-08-18 06:43] LABS: BASOPHILS % (AUTO) 0 % (0-3); EOSINOPHILS % (AUTO) 0 % (0-5); MONOCYTES % (AUTO) 5 % (4-12); NEUTROPHILS % (AUTO) 80 % (40-74)
[2016-08-18] MEDS: Piperacillin-Tazo 3.375 Gm Inj 3.375 GM in Dextrose 5% Minibag Plus 50 ML IV SCH ×2 (07:44→21:55)
[2016-08-18] MEDS: Fluticasone 0.05% 15 Spray/2 Gm 16 Gm Nasal Spray NASAL SCH ×2 (09:15→21:55)
--- NOTE | 2016-08-18 10:05 | DRSVH ---
PROCEDURE: X-RAY CHEST ONE VIEW, PORTABLE ([id number]) INDICATIONS: pancreatitis and hypoxia-?ARDS TECHNIQUE: One view of the chest was acquired. COMPARISON: [facility], CR, XR CHEST 1VW (PORTABLE), 08/16/2016, 16:04. FINDINGS: Surgical changes and devices: None. Lungs and pleura: Bilateral calcified pleural plaques are demonstrated. Interval development of smal l bibasilar pleural effusions and mid/bibasilar airspace opacities. No pneumothorax. Mediastinum: Mediastinal contours appear normal. Heart size is normal. Vascular calcifications ind icate atherosclerosis. Bones and chest wall: No suspicious bony lesions. Overlying soft tissues appear unremarkable. IMPRESSION: 1. 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 2. Mid/basilar airspace opacities and small pleural effusions consistent with compressive atelectasis versus pneumonia. Dictated by: Wang Kaminski A Interpreted: Wilfredo Velazquez MD on 08/18/2016 at 10:02 Transcribed by: TINA on 08/18/2016 at 10:05 Approved by: Wilfredo Velazquez M.D. on 08/18/2016 at 17:31
--- NOTE | 2016-08-18 10:25 | PCM.PNMED ---
Subjective Date of Service Aug 18, 2016 Subjective GASTROENTEROLOGY PROGRESS NOTE Today: States he feels improved; continues to endorse diffuse abdominal pain, but most severe RUQ with palpation. Denies fever, chills. Denies SOB, but does report wheeze. No difficulty swallowing. Currently NPO for procedure. Exam Vital Signs Vital Sign - Last Date Time Temp Pulse Resp B/P Pulse Ox O2 Delivery O2 Flow Rate FiO2 08/18/16 09:48 100 20 96 OxyMask 3.00 08/18/16 05:43 36.6 110/60 08/18/16 02:33 97 Intake and Output 08/17/16 08/17/16 08/18/16 Cumulative From/Thru 15:00 23:00 07:00 08/16/16 10:09 - 08/18/16 06:58 Intake Total 0 ml 2021 ml 2060 ml 6986 ml Output Total 675 ml 250 ml 350 ml 1275 ml Balance -675 ml 1771 ml 1710 ml 5711 ml Intake Oral 0 ml 0 ml 0 ml 0 ml IV Total 2021 ml 2060 ml 6986 ml Output Urine Total 625 ml 250 ml 350 ml 1225 ml Emesis 50 ml 50 ml # Voids 1 1 # Bowel Movements 0 0 0 0 Exam General: Alert, Oriented X3, Cooperative, no acute distress, resting in bed Head: Normal Eyes: EOMI, Scleral Anicteric Nose: Mucous Membr Moist/[place] Mouth: Mucous Membr Moist/[place] Chest & Lungs: Auscultation (adequate flow all alvarado; no coarse counds), Expiratory wheezes noted R upper field Cardiovascular: Regular Rate/Rhythm Pulses: Radial (equal and bilateral), Post Tibial (equal and bilateral) Abdomen: Tender to palpation RUQ; normoactive sounds Musculoskeletal: Normal Range of Motion Extremities: No cyanosis/clubbing/edma bilat Skin: Other (ecchymotic lesions BLUE secondary to phleb draws) Lab and Diagnostics Result Diagram: 08/18/1630 08/18/16 0530 X-Rays, CTs and MRIs CT ABDOMEN AND PELVIS WITH CONTRAST IMPRESSION: 1. Findings most adjustment of acute pancreatitis; clinical and laboratory confirmation is recommended. No evidence of marilu-pancreatic abscess, nor focal fluid collection. 2. Asbestos-related pleural disease. 3. Severe right renal atrophy. Dictated by: Kathleen Hodge M.D. on 08/16/2016 at 12:17 PROCEDURE: X-RAY CHEST ONE VIEW, PORTABLE IMPRESSION: Changes suggestive of bibasilar infiltrates. Prominent calcific plaquing. Old asbestos exposure is likely. Approved by: Kenny Basilio M.D. on 08/16/2016 at 17:04 Assessment & Plan GASTROENTEROLOGY CONSULTATION NOTE Mr. 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 He was admitted for acute pancreatitis. GI was consulted for further evaluation and treatment of acute pancreatitis, elevated liver enzymes, and abdominal pain. CT A/P w/con 08/16: Findings suggestive of acute pancreatitis with peripancreatic fat stranding and small amount peripancreatic fluid, without evidence of pancreatic abscess or focal fluid collection; severe right renal atrophy and asbestos-related pleural disease were also noted MRCP 08/17: Acute pancreatitis with possible small partially obstructing distal CBD stone; small amount ascites; possible gallbladder wall thickening; R > L basilar pleural effusions Abd US 08/17: Fair to poor visualization of gallbladder with possible mild thickening but no pericholecystic fluid seen Assessments - Acute gallstone pancreatitis with choledocholithiasis - Acute aminotransaminitis secondary to above - Severe abdominal pain secondary to above Plan/Recommendations - Monitor I/O; watchful of fluid overload/pulmonary edema - Addition of H2B - Keep NPO - Manage pain as best suited to patient's tolerance and sensitivity to medications - Agree with addition of Zosyn at this time - ERCP planned 08/18 - Will need cholecystectomy either prior to DC or as outpatient pending stability - Recommend alcohol cessation and/or limitation Thank you for this most interesting consult, we will happily follow along with you at this time. Please do not hesitate to contact us with any questions or concerns you may have. Total time: 30 minutes Pain Evaluation: Adequate Pain Control GI Prophylaxis: H2 verito VTE Mechanical Devices: Intermittant Pneumatic CD Attending Statement pt seen and examined agree with resident physician note please ERCP report from today for findings and recommendations. Latasha Grullon DO Aug 18, 2016 10:25 Kartik Johnson MD Aug 19, 2016 00:35
--- NOTE | 2016-08-18 10:34 | PROG NOTE ---
[address] [address] PROGRESS NOTE PATIENT: CAMRON RIVER : 1925 MR#: [id number] ADMIT: 08/16/2016 JOB ID: [id number] DATE: 08/18/2016 INFECTIOUS DISEASE FOLLOW UP NOTE: REASON FOR FOLLOWUP: Severe pancreatitis with possibility of a superimposed pancreatic infection and/or pneumonia. INTERVAL HISTORY: Overnight, the patient reports his abdominal pain has somewhat subsided. Recall that yesterday when we saw him as an initial consult he had truly agonizing abdominal pain and really would not allow any physical examination so that is somewhat better. He is still not allowed to take any food by mouth, of course, and still does have some mid epigastric pain. The patient continues to be somewhat short of breath and states that he has had intermittent periods of coughing which were accompanied by some productive sputum. He has no fevers, no chills. No sweats. No sore throat. PHYSICAL EXAMINATION: Reveals a quite ill appearing elderly gentleman lying supine in his hospital bed. His temperature is 36.6, and he has been afebrile since admission. His pulse is about 100, respiratory rate 24, blood pressure 110/60, saturating 94% on 3 L and he is not in any acute distress as opposed to yesterday afternoon, but he still looks to be uncomfortable. Eyes without scleral icterus. Oral cavity with dry mucous membranes. No pharyngitis. Lungs with some crackles at the bases bilaterally. Cardiac tones regular rate and rhythm. The abdomen is relatively silent. One can feel what appears to be an inflammatory mass within his epigastrium, but at least today the abdomen can be palpated somewhat without the patient experiencing severe pain. No skin rashes noted. LABORATORIES: Include a white count down from 26,000 yesterday to 17 today. There is still 8% bands though so over 1000 band forms are noted. His lactic acidosis has resolved finally. It is 1.8 this morning. Recall that yesterday it was approaching 4. His creatinine is notable for a progressive increase to 1.86 in this patient who has an atrophic kidney on one side. LFT is still wildly abnormal. AST 357, ALT 89. Lipase has dropped from 1900 to 750. His procalcitonin, on the other hand, has risen from 0.08 two days ago to 2.22 today. Urinalysis was negative. Blood cultures are negative. We just ordered a MRSA screen, as one was not available. IMAGING: Review of his imaging includes a chest x-ray done on the which showed bibasilar infiltrates and asbestosis type pleural plaques. An abdominal MRI scan showed a possible small obstructing distal common bile duct stone and they recommended ERCP. Also noted was right greater than left bibasilar infiltrates and a small amount of ascites. Some possible gallbladder wall thickening which could be indicative of cholecystitis was also noted. This led to obtaining an ultrasound of the gallbladder last night but it was a poor quality study which showed some wall thickening only. IMPRESSION: This is a difficult case of a very elderly gentleman who presents with severe pancreatitis. Whether or not he has infection is a bit of an open question as it often is in patients with pancreatitis as pancreatitis in and of itself can produce left-shifted white counts, fever and other laboratory abnormalities which may look like infection. At this point, we have a high white count with over 1000 bands which might be consistent with infection but could also be due to the pancreatitis. Of more concern perhaps is a rising procalcitonin which started off basically at 0 and has now risen to 2.22. His imaging suggests possible cholecystitis and/or impacted common duct stone, and for that reason, I think it is essential that we continue with broad-spectrum antibiotics. Another concern remains alcoholic hepatitis with associated alcoholic pancreatitis as his AST is many fold higher than his ALT in a patient who does drink some bourbon on a daily basis. RECOMMENDATIONS: 1. Will continue with Zosyn. 2. We have ordered a MRSA screen of the nares. 3. We have ordered a repeat chest x-ray because the patient does still have a considerable amount of respiratory difficulty and I think it is important we obtain serial films to at least keep some tabs on what may be going on as the patient remains at risk for ARDS.
[2016-08-18] MEDS ORDERED: Neostigmine 1 mg/mL 5 mL Inj ONE (13:01)
[2016-08-18] MEDS ORDERED: Rocuronium 10 mg/mL 5 mL Inj ONE (13:01)
[2016-08-18] MEDS ORDERED: Glycopyrrolate 0.2 mg/mL 5 mL Inj ONE (13:01)
[2016-08-18] MEDS ORDERED: Propofol 10,000 mCg/mL 20 mL Inj ONE (13:01)
[2016-08-18] MEDS ORDERED: Phenylephrine/NS 100 mCg/mL 10 mL Syringe IVPUSH ONE (13:01)
[2016-08-18] MEDS ORDERED: Phenylephrine 10,000 mCg/mL Inj ONE (13:01)
--- NOTE | 2016-08-18 15:22 | NUR ---
Endo/Transfer Patient to endo for ERCD. Report called to Nadja in Endo. After patient finished in Endo-he may have a choly-to be determined by patient condition. When procedures complete, patient will transfer to [facility]. Report called to Sole.
--- NOTE | 2016-08-18 15:49 | PCM.PNMED ---
Subjective Date of Service Aug 18, 2016 Subjective Vicenta Vaughan is an 89 year old man with past medical history significant for asbestosis, aortic bypass at the age of 37, renal artery stent for renal artery stenosis, hypothyroidism, atherosclerotic cerebrovascular disease, status post right carotid endarterectomy who presented to the [facility] ED via EMS due to severe abdominal pain. Today, he reports that his abdominal pain has improved. He no longer is nauseous. He has nasal congestion. He does not have fever, chills, chest pain, dyspnea, sore throat, or cough. He does not have diarrhea. Exam Vital Signs Vital Sign - Last Date Time Temp Pulse Resp B/P Pulse Ox O2 Delivery O2 Flow Rate FiO2 08/18/16 09:48 100 20 96 OxyMask 3.00 08/18/16 05:43 36.6 110/60 08/18/16 02:33 97 Intake and Output 08/17/16 08/17/16 08/18/16 Cumulative From/Thru 15:00 23:00 07:00 08/16/16 10:09 - 08/18/16 06:58 Intake Total 0 ml 2021 ml 2060 ml 6986 ml Output Total 675 ml 250 ml 350 ml 1275 ml Balance -675 ml 1771 ml 1710 ml 5711 ml Intake Oral 0 ml 0 ml 0 ml 0 ml IV Total 2021 ml 2060 ml 6986 ml Output Urine Total 625 ml 250 ml 350 ml 1225 ml Emesis 50 ml 50 ml # Voids 1 1 # Bowel Movements 0 0 0 0 Exam General: Awake and alert. No acute distress, well-developed, well-nourished, appropriately interactive.. HEENT: Normocephalic, atraumatic. External ears without defect. Pupils equal, round, and reactive to light and accommodation. Anicteric sclerae, moist conjunctivae, and no lid lag. Thick mucoid post-nasal drainage. Neck: Supple with full range of motion. No jugular venous distension. No lymphadenopathy or thyromegaly. Cardiovascular: Regular rate and rhythm with no murmurs, rubs, or gallops appreciated Pulmonary: Wheezing bilateral upper airway. Normal respiratory effort with no use of accessory muscles. Abdomen: Hyperactive bowel tones present. Soft, nondistended. Tender to even mild palpation over the epigastrium. No hepatosplenomegaly or masses appreciated. Extremities: No clubbing, cyanosis, edema, or lymphadenopathy appreciated. Skin: Normal temperature, turgor, and texture; no rash, ulcers, or subcutaneous nodules appreciated. Neurological: Cranial nerves grossly intact. Normal muscle strength, tone, and bulk. . Psychiatric: Normal mood and affect. Alert and oriented to person, place, and time. IVs and Medications Medications Reviewed: Medications were reviewed in detail Lab and Diagnostics Result Diagram: 08/18/16 0530 08/18/16 0530 X-Rays, CTs and MRIs CT ABDOMEN AND PELVIS WITH CONTRAST IMPRESSION: 1. Findings most adjustment of acute pancreatitis; clinical and laboratory confirmation is recommended. No evidence of marilu-pancreatic abscess, nor focal fluid collection. 2. Asbestos-related pleural disease. 3. Severe right renal atrophy. Dictated by: Kathleen Hodge M.D. on 08/16/2016 at 12:17 PROCEDURE: X-RAY CHEST ONE VIEW, PORTABLE IMPRESSION: Changes suggestive of bibasilar infiltrates. Prominent calcific plaquing. Old asbestos exposure is likely. Approved by: Kenny Basilio M.D. on 08/16/2016 at 17:04 PROCEDURE: US ABDOMEN, LIMITED ([id number]) IMPRESSION: Fair to poor visualization of the gallbladder. Possible mild wall thickening but no pericholecystic fluid is seen. No abnormal contents are seen. Approved by: Kenny Basilio M.D. on 08/17/2016 at 19:48 PROCEDURE: MRI ABDOMEN WITHOUT CONTRAST IMPRESSION: 1. Acute pancreatitis. 2. Possible small partially obstructing distal common bile duct calculus. This could be further assessed with ERCP, if clinically indicated. 3. Right greater than left basilar pneumonia with small bilateral pleural effusions. 4. Small amount of ascites. 5. Possible gallbladder wall thickening, which could indicate cholecystitis. This could be further assessed with ultrasound, if clinically indicated. 6. Findings discussed with Dr. Tee Baez on 08.17.16 at 1623 hrs. Approved by: Kathleen Hodge M.D. on 08/17/2016 at 16:23 PROCEDURE: US ABDOMEN, LIMITED IMPRESSION: Fair to poor visualization of the gallbladder. Possible mild wall thickening but no pericholecystic fluid is seen. No abnormal contents are seen. Approved by: Kenny Basilio M.D. on 08/17/2016 at 19:48 PROCEDURE: X-RAY CHEST ONE VIEW, PORTABLE IMPRESSION: 1. Pleural plaque redemonstrated consistent with asbestos related pleural disease. 2. Mid/basilar airspace opacities and small pleural effusions consistent with compressive atelectasis versus pneumonia. Transcribed by: TINA on 08/18/2016 at 10:05 Assessment & Plan Vicenta Vaughan is an 89 year old man with past medical history significant for asbestosis, aortic bypass at the age of 37, renal artery stent for renal artery stenosis, hypothyroidism, atherosclerotic cerebrovascular disease, status post right carotid endarterectomy who presented to the [facility] ED via EMS due to severe abdominal pain. Acute pancreatitis with choledocholithiasis, present on admission, active. -Lipase significantly elevated and evidence of pancreatitis on CT, however etiology is not quite clear and likely multifactorial. The patient does admit to some alcohol use but his LFTs were initially normal and his liver contour is normal as well. Of note his MCV is quite elevated which can indicated megaloblastic anemia but can also be seen in non-megaloblastic anemia secondary to direct toxicity of EtOH on the bone marrow. He denies any medication changes and none of his chronic medications seem to be culprits for pancreatitis. MRCP showed small partially obstructing distal common bile duct calculus. -Elevated WBC, liver enzymes, CRP, procalcitonin, and lactic acid. -We stopped fluid resuscitation this morning due to worsening pleural effusions. -He is currently NPO but will advance diet when he begins to feel hunger. -Continue Zofran for nausea management. Will consider NGT if nausea is not well controlled. -Pain management does pose some difficulty as his respiratory status seems to decline with narcotics -Will continue fentanyl at a reduced dose since 50 mcg sedated him pretty significantly -Continue IV Zosyn -ERCP today and based on the results, possible surgical intervention for cholecystitis -Gastroenterology consulted and following. Their time and recommendations are appreciated. Acute sepsis, active. -Met criteria with WBC 25.8 and heart rate of 100 bpm and elevated lactic acid and possible pneumonia and probable cholecystitis -Continue IV fluids and antibiotics as above -Infectious disease consulted and following. Their time and recommendations are appreciated. Probable acute cholecystitis, active. -Abdominal ultrasound and MRCP showed mild gallbladder wall thickening -Continue IV Zosyn -ERCP today -Cholecystectomy either as an inpatient after ERCP or as an outpatient pending patient's clinical status Possible community acquired or aspiration pneumonia, present on admission, active. -Chest x-ray shows bibasilar infiltrates and he have increasing WBC, CRP, procalcitonin, and lactic acid. However, lungs were clear to auscultation and no cough or dyspnea yesterday. Wheezing heard today with increased oxygen demand. Chest x-ray today shows worsening right pleural effusion, likely secondary to acute pancreatitis. 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 -Secondary to chronic alcohol use and above choledocholithiasis Adverse medication reaction, present on admission, improved. -Patient became very somnolent in response to narcotics -Will reduce dosing, discussed minimal doses with RN -PRN order of Narcan in case his respiratory status declines -Continuous pulse oxymetry History of pulmonary asbestosis -Chest X ray as above Hypothyroidism -Will resume levothyroxine when able to tolerate PO Atherosclerotic cerebrovascular disease, status post right carotid endarterectomy -Continue statin and ASA when able to tolerate PO. History of renal artery stent for renal artery stenosis -Likely his elevated Cr is due to essentially a solitary kidney since one of his kidneys has atrophied. Patient also received CODE STATUS: DNR/DNI Disposition: Patient likely to be here 1-2 more days pending results of ERCP and improvement of respiratory status and pancreatitis/cholecystitis. VTE Mechanical Devices: Intermittant Pneumatic CD Time spent 30 minutes Attending Statement I have seen and evaluated patient at bedside in addition to directly supervising care provided by resident physician. I agree with above documentation. Mellisa Chatman DO Aug 18, 2016 10:03 Luiz Bergman DO Aug 19, 2016 15:42
[2016-08-18] MEDS ORDERED: Lactated Ringer's 1,000 ML IV ONE (15:58)
--- NOTE | 2016-08-18 16:00 | PCM.HPANE ---
Patient Data Surgeon Admitting Provider:Luiz Bergman DO Attending Provider:Luiz Bergman DO Primary Care Physician:Ankit Eaton MD Other Provider: Reason for Visit Pancreatitis PANCREATITIS Ht/WT & BMI Height (Feet): 5 Height (Inches): 8.00 Weight (Kilograms): 74.500 Body Mass Index 24.00 Allergies Coded Allergies: hydromorphone (Verified Allergy, Severe, 08/18/16) Respiratory depression Past Anesthesia History Anesthesia History: Denies:: Anesthesia Reactions, Fam Anesthesia Reaction, Fam Malignant Hypertherm Diabetes History Hx Diabetes?: No MRSA MRSA: No Medications Blood Thinner: Aspirin Hypertension Medication: Yes Home Meds Incl Beta Abraham: Yes Reported Medications Aspirin 81 Mg [id number] Mg PO DAILY 08/16/16 Levothyroxine 112 Mcg [id number] Mcg PO DAILY For Thyroid Replacement 08/16/16 Metoprolol Tartrate 25 Mg Nsfmqm23 Mg PO BID 08/16/16 Atorvastatin Calcium 40 Mg Dhcxys58 Mg PO HS 08/16/16 Cholecalciferol (Vitamin D3) (Vitamin D)1,000 Unit Tablet1,000 Unit PO QAM 12/13/13 Discontinued Reported Medications Hydrocodone-Acetaminophen 5-325 mg 1 Each Tablet1 Each PO Q4 PRN For Pain Ref 0 12/13/13 Vitamin B Complex 1 Each Capsule1 Each PO 12/13/13 Aspirin (Aspir 81)81 Mg Tablet.dr81 Mg PO QAM 12/13/13 Metoprolol Tartrate 50 Mg Vtygwf44 Mg PO BID 30 Days Ref 0 12/13/13 Levothyroxine (Synthroid)100 Mcg Awamyi311 Mcg PO DAILY 30 Days Ref 0 12/13/13 Atorvastatin (Lipitor)20 Mg Stguba87 Mg PO HS 30 Days 12/13/13 Discontinued Scripts Albuterol HFA 8.5 Gm Hfa.aer.ad1 Puff IH Q4 PRN For Wheezing #1 INHALER Ref 0 Prov:Yariel Ruiz 12/15/13 Azithromycin (Zithromax (Z-Cesario))250 Mg Bpjegk155 Mg PO DAILY 2 Days Ref 0 Prov:Yariel Ruiz 12/15/13 Omeprazole Magnesium (Omeprazole)20 Mg Capsule.dr20 Mg PO DAILY 30 Days Ref 0 Prov:Mono Hernández MD 12/13/13 History History of ENT Problems?: Yes HEENT History: Denies:: Glaucoma (macular degeneration, presbyopia) Hx of Heart Problems?: Yes Cardiovascular History: Positive for:: Hypertension (aortic bypass) Denies:: AICD Pacemaker Valvular Heart Disease Other Cardiac History: HLD, hx aortic bypass Hx of Respiratory Problem?: Yes Respiratory History: Positive for:: COPD Dyspnea (with exertion) Pneumonia (hx pulmonary asbestosis& pulmonary scarring) Other Resp Pertinent History: current BLL pneumonia suspected. Hx Neurologic Problems?: No Neurological History: Denies:: CVA Hx of GI Problems?: Yes Gastrointestinal History: Positive for:: Gastroesphageal Reflux Heartburn Other GI Pertinent History: pancreatitis Hx of Problems?: No Male Hx: Denies:: Prostate Problems Scrotal Mass Testicular Surgery Hx Musculoskeletal Problems?: Yes Musculoskeletal History: Positive for:: Back Injury (low back pain) Hx of Psycho/Social Problems?: No Psycho Social History: Positive for:: Hx Depression Hx Surgeries?: Yes (aortic bypass, hernia repair) Hx Any Other Health Problems?: Yes Other History: Positive for:: Hospitalization Thyroid Disease Denies:: Cancer History Blood Transfusions: Positive for:: Accept Blood Products? Blood Transfusions Denies:: Blood Transfuse Reaction Hx Diabetes: No Hx Alcohol Use: Yes (1-3 per week)Hx Substance Use: No Smoking Status: Former Smoker Have You Smoked inLast 12 mo: No (quit smoking 30 yrs ago) Stop/Bang Treated for Sleep Apnea?: No Do You Have a CPAP Machine?: No S-Snoring: Do You Snore Loudly: No T-Tired: feel tired, fatigued: No O-Obsered: Observed not breath: No P-Blood Pressure: treated: Yes B- Body Mass Index > 35 kg/m2: No A- Age over 50: Yes N- Neck Large Circumference: No G- Gender Male: Yes MADIHA Total Score: 3 MADIHA Risk Assessment: Low Risk, <3 Yes Risk Assessment Category Category 1A: Patient has history of documented sleep apnea, and HAS NOT received any narcotic, sedative or anesthesia administration during this stay. Category 1B: Patient has history of documented sleep apnea, and HAS received any narcotic , sedative or anesthesia administration during this stay Category 2: Patient has SUSPECTED Obstructive Sleep Apnea, and HAS received any narcotic , sedative or anesthesia administration during this stay. Category 3: Patient has SUSPECTED Obstructive Sleep Apnea and HAS NOT received narcotic, sedative or anesthesia administration during this stay. Category 4: Outpatient in Procedural Areas with known sleep apnea or who screen positive for High Risk via the STOP/BANG questionnaire. Exam Exam Vital Signs Vital Signs Date Time Temp Pulse Resp B/P Pulse Ox O2 Delivery O2 Flow Rate FiO2 08/18/16 10:10 Supplement Oxygen 08/18/16 09:48 100 20 96 OxyMask 3.00 General Appearance: Oriented X3 HEENT/AIRWAY: MP 2 Lungs: Normal Air Movement Heart: Regular Rate/Rhythm Meds/Labs/Diagnostics Admission Meds Current Medications Atorvastatin Calcium (Lipitor) 40 mg HS PO Last administered on 08/17/16 20:52 ; Start 08/17/16 at 21:00 Famotidine (Pepcid) 20 mg HS PO Last administered on 08/17/16 20:50; Start 08/17 at 21:00 Labs Test 08/16/16 10:38 08/16/16 18:35 08/17/16 05:45 08/17/16 14:00 Prothrombin Time 10.4sec (8.1-12.5) Prothromb Time International Ratio 0.97ratio Activated Partial Thromboplast Time 26.9sec (22.8-33.0) Magnesium Level 2.0mg/dL (1.6-2.6) Urine Color Yellow (YELLOW) Urine Appearance Clear (CLEAR,HAZY) Urine pH 5.0 (5.0-8.0) Urine Specific [place] 1.015 (1.003-1.035) Urine Protein Negativemg/dL (NEG,TRACE) Urine Glucose (UA) Negativemg/dL (NEGATIVE) Urine Ketones Negativemg/dL (NEGATIVE) Urine Occult Blood Small (NEGATIVE) Urine Nitrite Negative (NEGATIVE) Urine Bilirubin Negative (NEGATIVE) Urine Urobilinogen Normalmg/dL (NORMAL) Urine Leukocyte Esterase Trace (NEGATIVE) Urine RBC 0-2/hpf (0-2) Urine WBC 0-5/hpf (0-5) Urine Epithelial Cells Few/hpf (NONE-MOD) Urine Crystals None seen (NONE SEEN) Urine Bacteria Few/hpf (NONE-FEW) Urine Hyaline Casts None/lpf (NONE) Urine Granular Casts None seen (NONE SEEN) Urine Waxy Casts None seen (NONE SEEN) Urine Red Blood Cell Casts None seen (NONE SEEN) Urine White Blood Cell Casts None seen (NONE SEEN) Urine Mucus None seen (None Seen) Urine Trichomonas None seen (NONE SEEN) Urine Yeast None (NONE SEEN) Urinalysis Comment None Triglycerides Level 67mg/dL (0-149) Cholesterol Level 126mg/dL (100-199) LDL Cholesterol, Calculated 57.600mg/dL (0-99) VLDL Cholesterol 13.400mg/dL HDL Cholesterol 55mg/dL (>39) Cholesterol/HDL Ratio 2.29 (0.0-4.4) C-Reactive Protein 14.1mg/dL (0.0-0.5) Test 08/18/16 05:30 08/18/16 09:35 White Blood Count 17.2th/mm3 (3.8-10.1) Red Blood Count 3.46mil/mm3 (4.40-5.80) Hemoglobin 11.8g/dL (13.8-17.2) Hematocrit 37.7% (41.0-50.0) Mean Corpuscular Volume 109.0fL (81-100) Mean Corpuscular Hemoglobin 34.1pg (27.0-35.0) Mean Corpuscular Hemoglobin Concent 31.3% (32.0-37.0) Red Cell Distribution Width 14.6% (12.3-15.4) Platelet Count 133bil/L (150-400) Neutrophils (%) (Auto) 80% (40-74) Lymphocytes (%) (Auto) 7% (14-46) Monocytes (%) (Auto) 5% (4-12) Eosinophils (%) (Auto) 0% (0-5) Basophils (%) (Auto) 0% (0-3) Band Neutrophils % 8% (1-5) Sodium Level 141mEq/L (134-144) Potassium Level 5.1mEq/L (3.5-5.2) Chloride Level 109mEq/L (97-108) Carbon Dioxide Level 18mmol/L (18-29) Blood Urea Nitrogen 29mg/dL (8-27) Creatinine 1.86mg/dL (0.76-1.27) Estimat Glomerular Filtration Rate 37mL/min (>59) Glucose Level 78mg/dL (60-99) Calcium Level 7.6mg/dL (8.5-10.1) Total Bilirubin 0.7mg/dL (0.0-1.2) Aspartate Amino Transf (AST/SGOT) 357U/L (0-50) Alanine Aminotransferase (ALT/SGPT) 89U/L (0-44) Alkaline Phosphatase 99U/L (25-160) Total Protein 5.3g/dL (6.4-8.4) Albumin 2.8g/dL (3.4-5.0) Lipase 747U/L (13-60) Procalcitonin 2.22ng/mL (0.00-0.08) Lactic Acid Level 1.9mmol/L (0.4-2.0) Plan Impression Patient chart reviewed, patient interviewed and anesthestic plan with risks, benefits, and alternatives discussed, and informed consent obtained. ASA Physical Status: ASA4 Life Threatening Anesthetic Plan: GA Bene/Risks/Altern/Consents: Yes HP Complete Prior to Induction: Yes Jared Pollard MD Aug 18, 2016 16:00
[2016-08-18] MEDS ORDERED: Lactated Ringer's 1,000 ML IV SCH (16:02)
[2016-08-18] MEDS ORDERED: Lactated Ringer's 500 ML IV PRN (16:02)
[2016-08-18] MEDS ORDERED: Labetalol 5 mg/mL 4 mL Inj IV PRN (16:05)
[2016-08-18] MEDS ORDERED: Ondansetron 2 mg/mL 2 mL Inj IVPUSH PRN (16:05)
[2016-08-18] MEDS ORDERED: MetoCLOpramide 5 mg/mL 2 mL Inj IVPUSH PRN (16:05)
[2016-08-18] MEDS ORDERED: Phenylephrine 10,000 mCg/mL Inj IVPUSH PRN (16:05)
[2016-08-18] MEDS ORDERED: EPHEDrine Sulfate 50 mg/mL Inj IVPUSH PRN (16:05)
[2016-08-18] MEDS ORDERED: Dexamethasone 4 mg/mL Inj IVPUSH PRN (16:05)
--- NOTE | 2016-08-18 17:28 | PCM.ANEP2 ---
Post Anesthesia Evaluation ASA/CMS Post Anesthesia VS in Patient's Normal Range?: Yes Resp Stable; Airway Patent?: Yes CV Function & Hydration Stable: Yes Mental Status Recovered?: Yes Pain control Satisfactory?: Yes N/V Control Satisfactory?: Yes Jared Pollard MD Aug 18, 2016 17:28
--- NOTE | 2016-08-18 17:28 | PCM.ANEP1 ---
Post Anesthesia Phase 1 PACU Phase 1 Assessment Date of Service: Aug 17, 2016 Vital Signs Vital Signs Date Time Temp Pulse Resp B/P Pulse Ox O2 Delivery O2 Flow Rate FiO2 08/18/16 17:17 37.4 101 32 117/56 90 OxyMask 8 08/18/16 15:50 37.1 101 18 113/58 95 OxyMask 2 08/18/16 10:10 Supplement Oxygen 08/18/16 09:48 100 20 96 OxyMask 3.00 Anesthetic Administered: GA Level of Alertness: Sleepy, easy to arouse Pain: Yes (Level 5 - stomach) Pain Scale Score: 8 Nausea or Vomiting: No Oxygen Delivery: Venturi Mask Lungs: Normal Air Movement Jared Pollard MD Aug 18, 2016 17:28
--- NOTE | 2016-08-18 17:48 | DRSVH ---
PROCEDURE: X-RAY E.R.C.P. - BILIARY AND PANCREATIC ([id number]) INDICATIONS: PANCREATITIS TECHNIQUE: Fluoroscopic spot films were acquired by the gastroenterology service during ERCP procedu re. COMPARISON: None. FINDINGS: 3 fluoroscopic images demonstrate ERCP the common bile duct. There are no intraluminal fill ing defects on the final image. The ampulla not characterized. IMPRESSION: Intraoperative fluoroscopic ERCP images. Dictated by: Afua Block M.D. on 08/18/2016 at 17:45 Approved by: Afua Block M.D. on 08/18/2016 at 17:46
--- NOTE | 2016-08-18 19:29 | PCM.ANEP2 ---
Post Anesthesia Evaluation ASA/CMS Post Anesthesia Date of Service: Aug 18, 2016 VS in Patient's Normal Range?: Yes Resp Stable; Airway Patent?: Yes (Patient on BIPAP in PACU for approximately 30 minutes, now off. Awake and answering questions. Sats at baseline 88-91% on oxymask) CV Function & Hydration Stable: Yes Mental Status Recovered?: Yes Pain control Satisfactory?: Yes N/V Control Satisfactory?: Yes Additional Comments Spoke with hospitalist/resident team. Patient to be transported back to original room given improvement in condition, but they will watch and consider transport to higher level of care if ongoing BIPAP is necessary overnight. Patient is DNR/DNI Mahin Pleitez MD Aug 18, 2016 19:29
--- NOTE | 2016-08-18 20:07 | ENDO ---
[address] [address] ENDOSCOPY PROCEDURE PATIENT: CAMRON RIVER : 1925 MR#: [id number] ADMIT: 08/16/2016 JOB ID: [id number] INDICATION: Choledocholithiasis and gallstone pancreatitis. The patient's ASA classification, Mallampati score, and medications as per Dr. Jared Pollard's anesthesia report. Patient was placed under general anesthesia. INSTRUMENT USED: [id number] PROCEDURE DETAILS: After informed consent was obtained, patient was brought to the GI suite, where he was placed under general anesthesia and then placed in the standard endoscopic retrograde cholangiopancreatography position. The side-viewing duodenal scope was introduced through the bite block and advanced without difficulty to the second portion of the duodenum without difficulty. The ampulla was identified. Minimal amount of pus and bile was seen flowing from the ampulla. Next, using an Olympus CleverCut tome, selective biliary cannulation was achieved with wire guidance. Initial cholangiogram demonstrated the common bile duct measuring approximately 10-11 mm. No filling defects were seen. Filling of the cystic duct and gallbladder was appreciated The intrahepatics were filled and appeared normal. A moderate-size sphincterotomy was then performed followed by balloon sweep with an 11.5 mm inject from below Olympus balloon. Minimal amount of pus was extruded.with balloon sweep x 3. IMPRESSION: Cholangitis Endoscopic retrograde cholangiopancreatography, status post sphincterotomy and balloon sweep. RECOMMENDATIONS: 1. Start clear liquid diet. 2. Avoid NSAIDs and anticoagulants for 72 hours. 3. Follow LFT's 4. continue antibiotics COMPLICATIONS: None. ESTIMATED BLOOD LOSS: Zero. MTDD
--- NOTE | 2016-08-18 22:05 | DRSVH ---
PROCEDURE: X-RAY CHEST ONE VIEW, PORTABLE ([id number]) INDICATIONS: worsening respiratory status TECHNIQUE: One view of the chest was acquired. COMPARISON: [facility], CR, XR CHEST 1VW (PORTABLE), 08/18/2016, 9:42. FINDINGS: Surgical changes and devices: Surgical clips are projected over the right cervical region. Lungs and pleura: Bilateral patchy basilar airspace opacities and small pleural effusions are redemon strated. No pneumothorax. Left basilar pleural plaque is redemonstrated. Mediastinum: Mediastinal contours appear normal. Heart size is normal. Bones and chest wall: No suspicious bony lesions. Overlying soft tissues appear unremarkable. IMPRESSION: 1. Bibasal airspace opacities and pleural effusions suspicious for aspiration/infection. Dictated by: Afua Block M.D. on 08/18/2016 at 22:02 Approved by: Afua Block M.D. on 08/18/2016 at 22:03
[2016-08-18] MEDS ORDERED: Furosemide 10 mg/mL 4 mL Inj IVPUSH ONE (23:50)
[2016-08-19] VITALS (9 sets, daily range): BP systolic 70–100; BP diastolic 42–51; PULSE 85–90; RESP 16–24; O2SAT 92–99
--- NOTE | 2016-08-19 01:09 | PCM.PNMED ---
Subjective Date of Service Aug 19, 2016 Subjective Called to see patient for increased respiratory distress and increased oxygen supplementation requirements. Patient did have ERCP done today by gastroenterology did require BiPAP after being extubated after the procedure and then was sent to [facility] on O2 by oxymask. Exam Vital Signs Vital Sign - Last Date Time Temp Pulse Resp B/P Pulse Ox O2 Delivery O2 Flow Rate FiO2 08/19/16 00:21 35.8 86 24 89/45 95 OxyMask 9.50 08/18/16 18:41 45 Intake and Output 08/18/16 08/18/16 08/19/16 Cumulative From/Thru 14:59 22:59 06:59 08/16/16 10:09 - 08/18/16 18:09 Intake Total 600 ml 7586 ml Output Total 1275 ml Balance 600 ml 6311 ml Intake Oral 0 ml 0 ml IV Total 600 ml 7586 ml Output Urine Total 1225 ml Emesis 50 ml # Voids 2 3 # Bowel Movements 0 0 Exam Constitutional: Elderly gentleman who is somewhat lethargic but does respond appropriately to questions. Head: Normocephalic atraumatic Chest: Diffuse rhonchi Cor: Regular rate and rhythm S1-S2 Abdomen: Soft tender in the epigastrium Extremities: Trace bilateral pedal edema Lab and Diagnostics Laboratory Tests 72 Hours Test 08/16/16 10:38 08/16/16 18:35 08/17/16 05:45 08/17/16 14:00 White Blood Count 12.4th/mm3 (3.8-10.1) 25.8th/mm3 (3.8-10.1) Red Blood Count 3.73mil/mm3 (4.40-5.80) 3.92mil/mm3 (4.40-5.80) Hemoglobin 12.5g/dL (13.8-17.2) 13.4g/dL (13.8-17.2) Hematocrit 39.2% (41.0-50.0) 42.3% (41.0-50.0) Mean Corpuscular Volume 105.1fL (81-100) 107.9fL (81-100) Mean Corpuscular Hemoglobin 33.5pg (27.0-35.0) 34.2pg (27.0-35.0) Mean Corpuscular Hemoglobin Concent 31.9% (32.0-37.0) 31.7% (32.0-37.0) Red Cell Distribution Width 13.0% (12.3-15.4) 13.9% (12.3-15.4) Platelet Count 181bil/L (150-400) 177bil/L (150-400) Neutrophils (%) (Auto) 42.1% (40-74) 90.0% (40-74) Lymphocytes (%) (Auto) 49.3% (14-46) 5.1% (14-46) Monocytes (%) (Auto) 6.5% (4-12) 4.2% (4-12) Eosinophils (%) (Auto) 1.5% (0-5) 0.2% (0-5) Basophils (%) (Auto) 0.5% (0-3) 0.1% (0-3) Prothrombin Time 10.4sec (8.1-12.5) Prothromb Time International Ratio 0.97ratio Activated Partial Thromboplast Time 26.9sec (22.8-33.0) Sodium Level 139mEq/L (134-144) 138mEq/L (134-144) 139mEq/L (134-144) Potassium Level 4.5mEq/L (3.5-5.2) 5.9mEq/L (3.5-5.2) 5.3mEq/L (3.5-5.2) Chloride Level 101mEq/L (97-108) 103mEq/L (97-108) 104mEq/L (97-108) Carbon Dioxide Level 24mmol/L (18-29) 14mmol/L (18-29) 19mmol/L (18-29) Blood Urea Nitrogen 20mg/dL (8-27) 24mg/dL (8-27) 25mg/dL (8-27) Creatinine 1.34mg/dL (0.76-1.27) 1.66mg/dL (0.76-1.27) 1.67mg/dL (0.76-1.27) Estimat Glomerular Filtration Rate 53mL/min (>59) 42mL/min (>59) 41mL/min (>59) Glucose Level 128mg/dL (60-99) 108mg/dL (60-99) 105mg/dL (60-99) Calcium Level 8.6mg/dL (8.5-10.1) 8.0mg/dL (8.5-10.1) 7.9mg/dL (8.5-10.1) Magnesium Level 2.0mg/dL (1.6-2.6) Total Bilirubin 0.8mg/dL (0.0-1.2) 1.0mg/dL (0.0-1.2) 0.8mg/dL (0.0-1.2) Aspartate Amino Transf (AST/SGOT) 40U/L (0-50) 390U/L (0-50) 547U/L (0-50) Alanine Aminotransferase (ALT/SGPT) 24U/L (0-44) 114U/L (0-44) 126U/L (0-44) Alkaline Phosphatase 112U/L (25-160) 159U/L (25-160) 137U/L (25-160) Total Protein 6.8g/dL (6.4-8.4) 6.3g/dL (6.4-8.4) 6.0g/dL (6.4-8.4) Albumin 3.6g/dL (3.4-5.0) 3.2g/dL (3.4-5.0) 3.2g/dL (3.4-5.0) Lipase 1911U/L (13-60) Procalcitonin 0.08ng/mL (0.00-0.08) 0.79ng/mL (0.00-0.08) Urine Color Yellow (YELLOW) Urine Appearance Clear (CLEAR,HAZY) Urine pH 5.0 (5.0-8.0) Urine Specific Guthrie 1.015 (1.003-1.035) Urine Protein Negativemg/dL (NEG,TRACE) Urine Glucose (UA) Negativemg/dL (NEGATIVE) Urine Ketones Negativemg/dL (NEGATIVE) Urine Occult Blood Small (NEGATIVE) Urine Nitrite Negative (NEGATIVE) Urine Bilirubin Negative (NEGATIVE) Urine Urobilinogen Normalmg/dL (NORMAL) Urine Leukocyte Esterase Trace (NEGATIVE) Urine RBC 0-2/hpf (0-2) Urine WBC 0-5/hpf (0-5) Urine Epithelial Cells Few/hpf (NONE-MOD) Urine Crystals None seen (NONE SEEN) Urine Bacteria Few/hpf (NONE-FEW) Urine Hyaline Casts None/lpf (NONE) Urine Granular Casts None seen (NONE SEEN) Urine Waxy Casts None seen (NONE SEEN) Urine Red Blood Cell Casts None seen (NONE SEEN) Urine White Blood Cell Casts None seen (NONE SEEN) Urine Mucus None seen (None Seen) Urine Trichomonas None seen (NONE SEEN) Urine Yeast None (NONE SEEN) Urinalysis Comment None Triglycerides Level 67mg/dL (0-149) Cholesterol Level 126mg/dL (100-199) LDL Cholesterol, Calculated 57.600mg/dL (0-99) VLDL Cholesterol 13.400mg/dL HDL Cholesterol 55mg/dL (>39) Cholesterol/HDL Ratio 2.29 (0.0-4.4) Lactic Acid Level 4.2mmol/L (0.4-2.0) C-Reactive Protein 14.1mg/dL (0.0-0.5) Test 08/17/16 20:05 08/17/16 22:45 08/18/16 01:37 08/18/16 02:30 Lactic Acid Level 4.7mmol/L (0.4-2.0) 2.7mmol/L (0.4-2.0) 3.3mmol/L (0.4-2.0) 3.8mmol/L (0.4-2.0) Test 08/18/16 05:30 08/18/16 07:50 08/18/16 09:35 White Blood Count 17.2th/mm3 (3.8-10.1) Red Blood Count 3.46mil/mm3 (4.40-5.80) Hemoglobin 11.8g/dL (13.8-17.2) Hematocrit 37.7% (41.0-50.0) Mean Corpuscular Volume 109.0fL (81-100) Mean Corpuscular Hemoglobin 34.1pg (27.0-35.0) Mean Corpuscular Hemoglobin Concent 31.3% (32.0-37.0) Red Cell Distribution Width 14.6% (12.3-15.4) Platelet Count 133bil/L (150-400) Neutrophils (%) (Auto) 80% (40-74) Lymphocytes (%) (Auto) 7% (14-46) Monocytes (%) (Auto) 5% (4-12) Eosinophils (%) (Auto) 0% (0-5) Basophils (%) (Auto) 0% (0-3) Band Neutrophils % 8% (1-5) Sodium Level 141mEq/L (134-144) Potassium Level 5.1mEq/L (3.5-5.2) Chloride Level 109mEq/L (97-108) Carbon Dioxide Level 18mmol/L (18-29) Blood Urea Nitrogen 29mg/dL (8-27) Creatinine 1.86mg/dL (0.76-1.27) Estimat Glomerular Filtration Rate 37mL/min (>59) Glucose Level 78mg/dL (60-99) Lactic Acid Level 2.4mmol/L (0.4-2.0) 1.8mmol/L (0.4-2.0) 1.9mmol/L (0.4-2.0) Calcium Level 7.6mg/dL (8.5-10.1) Total Bilirubin 0.7mg/dL (0.0-1.2) Aspartate Amino Transf (AST/SGOT) 357U/L (0-50) Alanine Aminotransferase (ALT/SGPT) 89U/L (0-44) Alkaline Phosphatase 99U/L (25-160) Total Protein 5.3g/dL (6.4-8.4) Albumin 2.8g/dL (3.4-5.0) Lipase 747U/L (13-60) Procalcitonin 2.22ng/mL (0.00-0.08) Result Diagram: 08/18/16 0530 08/18/16 0530 X-Rays, CTs and MRIs CT ABDOMEN AND PELVIS WITH CONTRAST IMPRESSION: 1. Findings most adjustment of acute pancreatitis; clinical and laboratory confirmation is recommended. No evidence of marilu-pancreatic abscess, nor focal fluid collection. 2. Asbestos-related pleural disease. 3. Severe right renal atrophy. Dictated by: Kathleen Hodge M.D. on 08/16/2016 at 12:17 PROCEDURE: X-RAY CHEST ONE VIEW, PORTABLE IMPRESSION: Changes suggestive of bibasilar infiltrates. Prominent calcific plaquing. Old asbestos exposure is likely. Approved by: Kenny Basilio M.D. on 08/16/2016 at 17:04 PROCEDURE: US ABDOMEN, LIMITED ([id number]) IMPRESSION: Fair to poor visualization of the gallbladder. Possible mild wall thickening but no pericholecystic fluid is seen. No abnormal contents are seen. Approved by: Kenny Basilio M.D. on 08/17/2016 at 19:48 PROCEDURE: MRI ABDOMEN WITHOUT CONTRAST IMPRESSION: 1. Acute pancreatitis. 2. Possible small partially obstructing distal common bile duct calculus. This could be further assessed with ERCP, if clinically indicated. 3. Right greater than left basilar pneumonia with small bilateral pleural effusions. 4. Small amount of ascites. 5. Possible gallbladder wall thickening, which could indicate cholecystitis. This could be further assessed with ultrasound, if clinically indicated. 6. Findings discussed with Dr. Tee Baez on 08.17.16 at 1623 hrs. Approved by: Kathleen Hodge M.D. on 08/17/2016 at 16:23 PROCEDURE: US ABDOMEN, LIMITED IMPRESSION: Fair to poor visualization of the gallbladder. Possible mild wall thickening but no pericholecystic fluid is seen. No abnormal contents are seen. Approved by: Kenny Basilio M.D. on 08/17/2016 at 19:48 PROCEDURE: X-RAY CHEST ONE VIEW, PORTABLE IMPRESSION: 1. Pleural plaque redemonstrated consistent with asbestos related pleural disease. 2. Mid/basilar airspace opacities and small pleural effusions consistent with compressive atelectasis versus pneumonia. Transcribed by: TINA on 08/18/2016 at 10:05 Additional Diagnostics NDICATION: Choledocholithiasis and gallstone pancreatitis. The patient's ASA classification, Mallampati score, and medications as per Dr. Jared Pollard's anesthesia report. Patient was placed under general anesthesia. INSTRUMENT USED: [id number] PROCEDURE DETAILS: After informed consent was obtained, patient was brought to the GI suite, where he was placed under general anesthesia and then placed in the standard endoscopic retrograde cholangiopancreatography position. The side-viewing duodenal scope was introduced through the bite block and advanced without difficulty to the second portion of the duodenum without difficulty. The ampulla was identified. Minimal amount of pus and bile was seen flowing from the ampulla. Next, using an Olympus CleverCut tome, selective biliary cannulation was achieved with wire guidance. Initial cholangiogram demonstrated the common bile duct measuring approximately 10-11 mm. No filling defects were seen. Filling of the cystic duct and gallbladder was appreciated The intrahepatics were filled and appeared normal. A moderate-size sphincterotomy was then performed followed by balloon sweep with an 11.5 mm inject from below Olympus balloon. Minimal amount of pus was extruded.with balloon sweep x 3. IMPRESSION: Cholangitis Endoscopic retrograde cholangiopancreatography, status post sphincterotomy and balloon sweep. RECOMMENDATIONS: 1. Start clear liquid diet. 2. Avoid NSAIDs and anticoagulants for 72 hours. 3. Follow LFT's 4. continue antibiotics COMPLICATIONS: None. ESTIMATED BLOOD LOSS: Zero. 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 Acute pancreatitis with choledocholithiasis, present on admission, active. -Lipase significantly elevated and evidence of pancreatitis on CT, however etiology is not quite clear and likely multifactorial. The patient does admit to some alcohol use but his LFTs were initially normal and his liver contour is normal as well. Of note his MCV is quite elevated which can indicated megaloblastic anemia but can also be seen in non-megaloblastic anemia secondary to direct toxicity of EtOH on the bone marrow. He denies any medication changes and none of his chronic medications seem to be culprits for pancreatitis. MRCP showed small partially obstructing distal common bile duct calculus. -Elevated WBC, liver enzymes, CRP, procalcitonin, and lactic acid. -We stopped fluid resuscitation this morning due to worsening pleural effusions. -He is currently NPO but will advance diet when he begins to feel hunger. -Continue Zofran for nausea management. Will consider NGT if nausea is not well controlled. -Pain management does pose some difficulty as his respiratory status seems to decline with narcotics -Will continue fentanyl at a reduced dose since 50 mcg sedated him pretty significantly -Continue IV Zosyn -ERCP today and based on the results, possible surgical intervention for cholecystitis -Gastroenterology consulted and following. Their time and recommendations are appreciated. Acute sepsis, active. -Met criteria with WBC 25.8 and heart rate of 100 bpm and elevated lactic acid and possible pneumonia and probable cholecystitis -Continue IV fluids and antibiotics as above -Infectious disease consulted and following. Their time and recommendations are appreciated. Probable acute cholecystitis, active. -Abdominal ultrasound and MRCP showed mild gallbladder wall thickening -Continue IV Zosyn -ERCP today -Cholecystectomy either as an inpatient after ERCP or as an outpatient pending patient's clinical status Possible community acquired or aspiration pneumonia, present on admission, active. -Chest x-ray shows bibasilar infiltrates and he have increasing WBC, CRP, procalcitonin, and lactic acid. However, lungs were clear to auscultation and no cough or dyspnea yesterday. Wheezing heard today with increased oxygen demand. Chest x-ray today shows worsening right pleural effusion, likely secondary to acute pancreatitis. 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 -Secondary to chronic alcohol use and above choledocholithiasis Adverse medication reaction, present on admission, improved. -Patient became very somnolent in response to narcotics -Will reduce dosing, discussed minimal doses with RN -PRN order of Narcan in case his respiratory status declines -Continuous pulse oxymetry History of pulmonary asbestosis -Chest X ray as above Hypothyroidism -Will resume levothyroxine when able to tolerate PO Atherosclerotic cerebrovascular disease, status post right carotid endarterectomy -Continue statin and ASA when able to tolerate PO. History of renal artery stent for renal artery stenosis -Likely his elevated Cr is due to essentially a solitary kidney since one of his kidneys has atrophied. Patient also received CODE STATUS: DNR/DNI Disposition: Patient likely to be here 1-2 more days pending results of ERCP and improvement of respiratory status and pancreatitis/cholecystitis. Acute critical care assessment and plan: Acute respiratory failure with hypoxia, not present on admission - Possibly due to fluid overload and pulmonary edema after review of chest x- ray which also reveals poor lung expansion - IV Lasix 1 - Check serial cardiac enzymes and lactic acid level - Obtain ABG stat - Transfer to [facility] and consider BiPAP therapy if O2 sats do not improve or if it is hypercapnic. GI Prophylaxis: H2 verito VTE Mechanical Devices: Intermittant Pneumatic CD Resuscitation Status: DNR/DNI:Do Not Resuscitate/Intubate Time spent Critical care time spent was 30 minutes Rosemary Velez MD Aug 19, 2016 01:09
--- NOTE | 2016-08-19 01:14 | NUR ---
PostOp/Respiratory/Transfer Received from PACU @ 194. Transferred into bed via slideboard. Alert to name and touch but quickly drifts back to sleep r/t sedation. SpO2 mid-high 90's 3L oxymask. BATCH ATTENDANT applied. Denies pain or discomfort. Incontinent of urine x1. IV SL. NPO @ this time r/t sedation. Oriented to call light use but bed alarm and rails x3 up due to sedation. Necklace sent home with daughter and son in law. Unable to maintain SpO2 >90% on oxymask 10L. 15L Non rebreather applied with SpO2 returning mid-high 90's. notified of increased Spo2 demands. Transferred to 2027 via bed with plan to initiate BiPAP. IV ABO infusing on transfer. Remains sedated but awakens to name. Personal belongings and medications sent with patient. Family notified of patient transfer prior to transfer. Report given to receiving RN.
[2016-08-19] MEDS ORDERED: Heparin 5,000 Unit/mL Inj IVPUSH PRN (03:10)
[2016-08-19] MEDS ORDERED: Heparin 25K Unit/500mL 0.45 NS 25,000 UNIT in IV Premix 1 EACH IV SCH (03:10)
[2016-08-19] MEDS ORDERED: DOPamine 800 mg/250 mL D5W 800,000 MCG in IV Premix 1 EACH IV SCH (03:20)
[2016-08-19] MEDS ORDERED: Sodium Chloride LOK Flush 10 mL Syringe IVFLUSH PRN ×2 (03:45)
--- NOTE | 2016-08-19 04:29 | ABG ---
DateTimeAnalyzed 04:18:00 -_ pH ____7.120 - pCO2 ___72.4__ -mmHg pO2 ___24.0__ -mmHg HCO3- ___22.5__ -mmol/L ABE ___-8.0__ -mmol/L tHb ___12.8__ -g/dL O2Hb ___36.9__ -% COHb ____1.0__ -% MetHb ____1.0__ -% sO2 ___37.7__ -% FIO2 ____6.0__ -% Drawn By RN - Date/Time Notified____ 04:29:00 -_ Spontaneous_RR ___20.0__ -b/min Liter_Flow ____9.0__ -L/min Oxygen Device 1 _OXY MASK - Notified Whom DR O'ADAM - B 759 -mmHg tO2 ____6.7__ -Vol% Juanjo test N/A -
[2016-08-19 04:30] LABS: Mean Corpuscular Hemoglobin 34.2 pg (27.0-35.0); Mean Corpuscular Volume 111.8 fL (81-100); Platelet Count 128 bil/L (150-400)
[2016-08-19] MEDS ORDERED: Heparin 5,000 Unit/mL Inj IVPUSH ONE (04:30)
[2016-08-19 04:56] LABS: BASOPHILS % (AUTO) 0 % (0-3); EOSINOPHILS % (AUTO) 0 % (0-5); MONOCYTES % (AUTO) 5 % (4-12); NEUTROPHILS % (AUTO) 63 % (40-74)
[2016-08-19] MEDS ORDERED: 0.9% Sodium Chloride 500 ML IV ONE (05:55)
[2016-08-19] MEDS ORDERED: Sodium Bicarb 8.4% (10 mEq) 1 mEq/mL 10 mL Syringe IVPUSH ONE (06:25)
[2016-08-19] MEDS ORDERED: Calcium GLUCO 10% (mEq) Inj 4.65 MEQ in Dextrose 5% 50 ML IV ONE (06:25)
--- NOTE | 2016-08-19 06:27 | NUR ---
Transfer in CCU note Received patient transferred from [facility] Rm 2027 @ 0345 for hypotension. Pt lethargic,easily arousable, appropriate and follows simple commands, map 50's, given NS 500 cc bolus and started on low dose dopamine gtt, given heparin IV bolus and started on heparin gtt per PE/DVT protocol, on oxymask @ 10LPM, sp02 >92%, Venous blood gas resulted with pH 7.10, Pc02 72, p02 24, hc03 23, pt placed on bipap with fi02 0.50, 12/5 IPAP/EPAP, sp02 >96%, random FBS 56, given 1 amp D50, repeat BG 96. Pt has not voided yet. AM K 5.9, Creatinine 2.31, Dr Velez and Dr. Aldrich aware of AM labs
--- NOTE | 2016-08-19 06:39 | ABG ---
DateTimeAnalyzed 06:32:00 -_ pH ____7.216 - pCO2 ___50.0__ -mmHg pO2 ___36.8__ -mmHg HCO3- ___19.5__ -mmol/L ABE ___-8.1__ -mmol/L tHb ___13.7__ -g/dL O2Hb ___66.8__ -% COHb ____1.6__ -% MetHb ____0.9__ -% sO2 ___68.5__ -% FIO2 ___50.0__ -% CPAP ___12.0__ -cmH2O PEEP ____5.0__ -cmH2O Set_RR ___18.0__ -b/min Drawn By RN - Date/Time Notified____ 06:39:00 -_ Spontaneous_RR ___20.0__ -b/min Oxygen Device 1 ____BIPAP - Notified Whom RN - B 756 -mmHg tO2 ___12.8__ -Vol% Juanjo test N/A -
[2016-08-19] MEDS: Fluticasone 0.05% 15 Spray/2 Gm 16 Gm Nasal Spray NASAL SCH (08:30)
[2016-08-19] MEDS ORDERED: Phenylephrine Inj 20,000 MCG in 0.9% Sodium Chloride 250 ML IV SCH (08:51)
--- NOTE | 2016-08-19 09:14 | NUR ---
NUTRITION ASSESSMENT: ASSESS:89 YO male with history of daily alcohol intake, aortic bypass grafting at age 37, asbestosis, right renal atrophy due to renal artery stenosis secondary to renal vascular disease, and atherosclerotic cerebrovascular disease s/p right CEA, that presented to [facility] 08/16 with acute onset of severe sharp, stabbing abdominal pain, nausea, vomiting, and decreased oral intake. He was admitted for acute pancreatitis. GI was consulted for further evaluation and treatment of acute pancreatitis, elevated liver enzymes, and abdominal pain; status post ERCP today. Following the procedure, he was transferred to CCU with hypotension, increased respiratory distress and increased oxygen supplementation requirements. Pt. requiring BiPAP support at this time. Code status: DNR / DNI. PMHx:Daily alcohol intake, aortic bypass grafting at age 37, asbestosis, right renal atrophy due to renal artery stenosis secondary to renal vascular disease, and atherosclerotic cerebrovascular disease s/p right CEA. DIET:NPO / clear liquids x 3 D. LABS: K+ 5.9, Chloride 110, BUN 43, Cr 2.31, Ca 7.7, AST 203, ALT 68, Alb 2.7, Procalcitonin 4.71. MEDICATIONS: Reviewed. Lasix, Fentanyl, Zofran. NUTRITION FOCUSED PHYSICAL ASSESSMENT: GI symptoms / stool: No stool reported.Mir: 19. Skin Integrity: No issues reported. ANTHROPOMETRICS: Current Wt: 83.2 kgBMI: 27.0 kg/m2. Admit weight: 74.5 kg IBW: 70 kg (119% IBW) ESTIMATED NEEDS (CKD, CCU): Calories: 2080 - 2496 kcal (25 - 30 kcal / kg BW) Protein: 67 - 125 g protein (0.8 - 1.5 g / kg BW) Fluid: Approx. 2080 mL (25 mL / kg BW) NUTRITION DIAGNOSIS: 1)Inadequate oral intake related to altered GI function, as evidenced by NPO / clear liquid status x 3 D, status post ERCP. INTERVENTION: 1) Will add Ensure Clear to trays while on clear liquid diet. MONITOR/EVALUATE: Diet advance / tolerance, PO intake, labs, GI/nutrition status. Follow up per high nutrition risk guidelines.
--- NOTE | 2016-08-19 09:54 | PCM.PNMED ---
Subjective Date of Service Aug 19, 2016 Subjective GASTROENTEROLOGY PROGRESS NOTE Overnight: Patient was transferred to CCU for hypotension, acute hypoxemic respiratory failure, acute anterior SC. Today: Patient states that his abdominal pain has resolved. Denies any chest pain. Admits to mild dyspnea, and states BPAP mask is 'tolerable.' Family present at bedside, findings of ERCP discussed. Exam Vital Signs Vital Sign - Last Date Time Temp Pulse Resp B/P Pulse Ox O2 Delivery O2 Flow Rate FiO2 08/19/16 07:21 96 18 96/45 97 50 08/19/16 04:00 36.1 OxyMask 10.00 Intake and Output 08/18/16 08/18/16 08/19/16 Cumulative From/Thru 15:00 23:00 07:00 08/16/16 10:09 - 08/19/16 04:00 Intake Total 600 ml 7586 ml Output Total 1275 ml Balance 600 ml 6311 ml Intake Oral 0 ml 0 ml IV Total 600 ml 7586 ml Output Urine Total 1225 ml Emesis 50 ml # Voids 2 3 # Bowel Movements 0 0 Exam General: Alert, Oriented X3, Cooperative, no acute distress, resting in bed with BPAP in place Head: Normal Eyes: EOMI, Scleral Anicteric Nose: Mucous Membr Moist/[place] Mouth: Mucous Membr Moist/[place] Chest & Lungs: Adequate flow all alvar[place], no wheeze appreciated; mild coarse sounds appreciated R > L bases Cardiovascular: Tachycardic at time of examination, HR 102 Pulses: Radial (equal and bilateral), Post Tibial (equal and bilateral) Abdomen: Nontender, nondistended; normoactive sounds Extremities: No cyanosis/clubbing/edma bilat Skin: Other (ecchymotic lesions BLUE secondary to phleb draws) Neuro: Grossly intact; speech normal without slur Psych: Appropriate mood, affect, and responses to questioning; fully coherent; good insight and judgment Lab and Diagnostics Result Diagram: 08/19/16 0415 08/19/16 0430 X-Rays, CTs and MRIs CT ABDOMEN AND PELVIS WITH CONTRAST IMPRESSION: 1. Findings most adjustment of acute pancreatitis; clinical and laboratory confirmation is recommended. No evidence of marilu-pancreatic abscess, nor focal fluid collection. 2. Asbestos-related pleural disease. 3. Severe right renal atrophy. Dictated by: Kathleen Hodge M.D. on 08/16/2016 at 12:17 PROCEDURE: X-RAY CHEST ONE VIEW, PORTABLE IMPRESSION: Changes suggestive of bibasilar infiltrates. Prominent calcific plaquing. Old asbestos exposure is likely. Approved by: Kenny Basliio M.D. on 08/16/2016 at 17:04 PROCEDURE: US ABDOMEN, LIMITED ([id number]) IMPRESSION: Fair to poor visualization of the gallbladder. Possible mild wall thickening but no pericholecystic fluid is seen. No abnormal contents are seen. Approved by: Kenny Basilio M.D. on 08/17/2016 at 19:48 PROCEDURE: MRI ABDOMEN WITHOUT CONTRAST IMPRESSION: 1. Acute pancreatitis. 2. Possible small partially obstructing distal common bile duct calculus. This could be further assessed with ERCP, if clinically indicated. 3. Right greater than left basilar pneumonia with small bilateral pleural effusions. 4. Small amount of ascites. 5. Possible gallbladder wall thickening, which could indicate cholecystitis. This could be further assessed with ultrasound, if clinically indicated. 6. Findings discussed with Dr. Tee Baez on 08.17.16 at 1623 hrs. Approved by: Kathleen Hodge M.D. on 08/17/2016 at 16:23 PROCEDURE: US ABDOMEN, LIMITED IMPRESSION: Fair to poor visualization of the gallbladder. Possible mild wall thickening but no pericholecystic fluid is seen. No abnormal contents are seen. Approved by: Kenny Basilio M.D. on 08/17/2016 at 19:48 PROCEDURE: X-RAY CHEST ONE VIEW, PORTABLE IMPRESSION: 1. Pleural plaque redemonstrated consistent with asbestos related pleural disease. 2. Mid/basilar airspace opacities and small pleural effusions consistent with compressive atelectasis versus pneumonia. Transcribed by: TINA on 08/18/2016 at 10:05 Additional Diagnostics NDICATION: Choledocholithiasis and gallstone pancreatitis. The patient's ASA classification, Mallampati score, and medications as per Dr. Jared Pollard's anesthesia report. Patient was placed under general anesthesia. INSTRUMENT USED: [id number] PROCEDURE DETAILS: After informed consent was obtained, patient was brought to the GI suite, where he was placed under general anesthesia and then placed in the standard endoscopic retrograde cholangiopancreatography position. The side-viewing duodenal scope was introduced through the bite block and advanced without difficulty to the second portion of the duodenum without difficulty. The ampulla was identified. Minimal amount of pus and bile was seen flowing from the ampulla. Next, using an Olympus CleverCut tome, selective biliary cannulation was achieved with wire guidance. Initial cholangiogram demonstrated the common bile duct measuring approximately 10-11 mm. No filling defects were seen. Filling of the cystic duct and gallbladder was appreciated The intrahepatics were filled and appeared normal. A moderate-size sphincterotomy was then performed followed by balloon sweep with an 11.5 mm inject from below Olympus balloon. Minimal amount of pus was extruded.with balloon sweep x 3. IMPRESSION: Cholangitis Endoscopic retrograde cholangiopancreatography, status post sphincterotomy and balloon sweep. RECOMMENDATIONS: 1. Start clear liquid diet. 2. Avoid NSAIDs and anticoagulants for 72 hours. 3. Follow LFT's 4. continue antibiotics COMPLICATIONS: None. ESTIMATED BLOOD LOSS: Zero. Kartik Johnson MD 08/18/16 1712 <Electronically signed by Kartik Johnson MD> 08/19/16 0041 Report status: Signed Transcribed by: NICOLASA 08/18/162005 REPORT#: [id number] cc: Kartik Johnson MD; Ankit Eaton MD Assessment & Plan GASTROENTEROLOGY CONSULTATION NOTE Mr. 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 He was admitted for acute pancreatitis. GI was consulted for further evaluation and treatment of acute pancreatitis, elevated liver enzymes, and abdominal pain. CT A/P w/con 08/16: Findings suggestive of acute pancreatitis with peripancreatic fat stranding and small amount peripancreatic fluid, without evidence of pancreatic abscess or focal fluid collection; severe right renal atrophy and asbestos-related pleural disease were also noted MRCP 08/17: Acute pancreatitis with possible small partially obstructing distal CBD stone; small amount ascites; possible gallbladder wall thickening; R > L basilar pleural effusions Abd US 08/17: Fair to poor visualization of gallbladder with possible mild thickening but no pericholecystic fluid seen ERCP 08/18: Minimal amount of pus and bile seen flowing from ampulla; CBD measures apporx 10-11mm without noted filling defects; filling of cystic duct and gallbladder was appreciated; moderate sized sphincterotomy was completed with balloon sweep x3 with minimal amount of pus extruded. Assessments - Acute cholangitis - Suspected acute gallstone pancreatitis with choledocholithiasis s/p ERCP with sphincterotomy and balloon sweep - Acute aminotransaminitis secondary to above - Severe abdominal pain secondary to above Plan/Recommendations - Start clear liquid diet when appropriate - Careful monitoring of addition of heparin for acute bleeding at sphincterotomy site; if heparin is continued - Addition of H2B - Manage pain as best suited to patient's tolerance and sensitivity to medications - Continue antibiotics; if patient wishes - Will need cholecystectomy either prior to DC or as outpatient pending stability and urgency; and also depends on patient's and family's wishes - Recommend alcohol cessation and/or limitation; pending DC course and stability to return home Thank you for this most interesting consult. Please do not hesitate to contact us with any questions or concerns you may have. It was discussed with primary team that patient may pursue comfort care measures. If comfort care is pursued, we will sign off, but please contact us if any questions or concerns arise from family or the medical team. Total time: 40 minutes Pain Evaluation: Adequate Pain Control GI Prophylaxis: H2 verito VTE Mechanical Devices: Intermittant Pneumatic CD Resuscitation Status: DNR/DNI:Do Not Resuscitate/Intubate Attending Statement patient seen and examined events overnight noted discussed with both daughters at bedside LFT's improving, abdominal pain has resolved ok to advance diet from GI standpoint further plans as per primary team and cardiology team Latasha Grullon DO Aug 19, 2016 09:54 Kartik Johnson MD Aug 19, 2016 15:40
[2016-08-19] MEDS: Piperacillin-Tazo 3.375 Gm Inj 3.375 GM in Dextrose 5% Minibag Plus 50 ML IV SCH (12:07)
--- NOTE | 2016-08-19 12:08 | DRSVH ---
Located Within [facility] [address] [place] [address] Echocardiogram Report Name: [place] DStudy Date: Height: 68 in Hospital Exam Location: [facility] Weight: 183 lb Gender: Male BSA: 2.0 m2 : 1925 Age: 89 yrs BP: 96/45 mmHg Reason For Study: Elevated Troponin Ordering Physician: HOSPITALIST SILVIAerformed By: Mikal Pak Referring Physician: JACK CARDONA Interpretation Summary The left ventricle is normal in size. The ejection fraction is estimated to be 30-35%. 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 No thrombus seen. No prior echo for comparison. The aortic valve is not well visualized. There is severe aortic valve sclerosis. Hemodynamically significant valvular aortic stenosis cannot be excluded. The right ventricular systolic pressure is estimated at 51 mmHg assuming a right atrial pressure of 8 mm Hg. No other echocardiographic abnormalities seen. Procedure: A two-dimensional transthoracic echocardiogram with color flow and Doppler was performed. The study quality was technically adequate. Comparison is made with the echocardiogram of 11/29/07. The patient was in normal sinus rhythm during the exam. Left Ventricle: The left ventricle is normal in size. Proximal septal thickening is noted. Left ventricular wall thickness is at the upper limits of normal. Trabeculae near apex are visualized. No thrombus is observed. The ejection fraction is estimated to be 30-35%. 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 No thrombus seen. No prior echo for comparison. Right Ventricle: The right ventricle grossly appears normal in size with probable normal systolic function. Atria: The left atrial size is normal. The right atrium grossly appears normal in size. The interatrial septum is intact with no evidence for an atrial septal defect. The thickening of interatrial septum suggests lipomatous hypertrophy. Mitral Valve: The mitral valve leaflets appear borderline thickened, but open well. There is mild mitral regurgitation. Aortic Valve: The aortic valve is mildly calcified. The aortic valve is not well visualized. There is severe aortic valve sclerosis. Hemodynamically significant valvular aortic stenosis cannot be excluded. There is trace aortic regurgitation. Tricuspid Valve: The tricuspid valve is normal. There is mild tricuspid regurgitation. The right ventricular systolic pressure is estimated at 51 mmHg assuming a right atrial pressure of 8 mm Hg. Pulmonic Valve: The pulmonic valve leaflets are thin and pliable; valve motion is normal. There is trace pulmonic regurgitation. Great Vessels: The aortic root is normal size. The ascending aorta is mild- moderately enlarged. The pulmonary artery is normal size. The IVC is of normal diameter and collapses less than 50% with a sniff. This suggests a right atrial pressure of 8 mm Hg. Pericardium/ Pleura There is no pericardial effusion. There is no pleural effusion. MMode/2D Measurements & Calculations LVIDd: 4.4 cm LA A2 area LVOT diam LV elam. diameter/BSA LVIDs: 3.0 cm (cm/m^2): 2.2 FS: 31.2 % Ao root diam EPSS: 0.34 cm LA A4 area IVSd: 0.96 cm asc Aorta LVPWd: 0.99 cm LA length (vol) Diam: 3.9 cm LA vol: 37.7 ml LA vol index IVC diam: 1.6 cm LV sys. diameter/BSA (cm/m^2): 1.5 Doppler Measurements & Calculations Ao V2 max: 150.8 cm/sec MV E max marlo MV E/A: 1.6 TR max marlo Ao max P.1 mmHg : 136.0 cm/sec : 329.4 cm/sec Ao mean P.0 mmHg MV A max marlo TR max PG LVOT Max Marlo : 85.9 cm/sec : 43.4 mmHg : 71.5 cm/sec PA V2 max MVA(VTI): 1.8 cm2 : 55.1 cm/sec MARIA TERESA(I,D): 1.4 cm PA mean PG sev ratio: 0.45 : 0.79 mmHg MV V2 mean: 73.6 cm/sec Ao V2 mean LV V1 max PG PA V2 mean MV mean P.4 mmHg : 106.7 cm/sec : 43.2 cm/sec MV V2 VTI: 22.4 cm Ao V2 VTI: 30.7 cm LV V1 VTI PA pr(Accel) MV dec time: 0.11 sec : 13.8 cm : 40.1 mmHg MARIA TERESA(V,D): 1.4 cm2 MARIA TERESA indexed to BSA (cm^2/m^2): 0.69 Reading Physician:12:07 PM
[2016-08-19] MEDS ORDERED: Haloperidol 5 mg/mL Inj IVPUSH PRN ×2 (12:50→21:30)
--- NOTE | 2016-08-19 18:20 | PCM.PNMED ---
Subjective Date of Service Aug 19, 2016 Subjective Vicenta Vaughan is an 89 year old man with past medical history significant for asbestosis, aortic bypass at the age of 37, renal artery stent for renal artery stenosis, hypothyroidism, atherosclerotic cerebrovascular disease, status post right carotid endarterectomy who presented to the [facility] ED via EMS due to severe abdominal pain under treatment for severe pancreatitis, sepsis complicated by anterior STEMI. Overnight: The patient had an ERCP and had to be intubated for the procedure. He developed respiratory difficulty post extubation and was placed on BPAP. The patient's labs revealed a troponin of 6. His morning EKG showed anterior STEMI. He was stated on a heparin drip. He also became hypotensive and without central venous access the team opted to start him on dopamine peripherally to support his blood pressures. Today: This morning the patient's family was contacted for consent for central venous access which they initially agreed to. However after an ECHO was completed which showed the entirety of the LAD territory infarcted and lengthy conversation with the patient's family including his daughters, one of whom is his DPOA the family decided to proceed with comfort care. The family prior to making their decision discussed the options with the patient and he himself expressed that he would like to stop treatment and go to comfort care. Exam Vital Signs Vital Sign - Last Date Time Temp Pulse Resp B/P Pulse Ox O2 Delivery O2 Flow Rate FiO2 08/19/16 12:00 96 18 96/45 97 50 08/19/16 04:00 36.1 OxyMask 10.00 Intake and Output 08/18/16 08/18/16 08/19/16 Cumulative From/Thru 15:00 23:00 07:00 08/16/16 10:09 - 08/19/16 04:00 Intake Total 600 ml 7586 ml Output Total 1275 ml Balance 600 ml 6311 ml Intake Oral 0 ml 0 ml IV Total 600 ml 7586 ml Output Urine Total 1225 ml Emesis 50 ml # Voids 2 3 # Bowel Movements 0 0 Exam General: with BPAP on in the CCU, somnolent but easy to awake with verbal stimulus. HEENT: Normocephalic, atraumatic. External ears without defect. Pupils equal, round, and reactive to light and accommodation. Anicteric sclerae, moist conjunctivae, and no lid lag. Thick mucoid post-nasal drainage. Neck: Supple with full range of motion. No jugular venous distension. No lymphadenopathy or thyromegaly. Cardiovascular: Regular rate and rhythm with no murmurs, rubs, or gallops appreciated Pulmonary: Wheezing bilateral upper airway. Normal respiratory effort with no use of accessory muscles. Abdomen: Hyperactive bowel tones present. Soft, nondistended. Non-tender. No hepatosplenomegaly or masses appreciated. Extremities: No clubbing, cyanosis, edema, or lymphadenopathy appreciated. Skin: Normal temperature, turgor, and texture; no rash, ulcers, or subcutaneous nodules appreciated. Neurological: Cranial nerves grossly intact. Normal muscle strength, tone, and bulk. Psychiatric: Somnolent. Alert and oriented to person, place, and time. IVs and Medications Medications Reviewed: Medications were reviewed in detail Lab and Diagnostics Result Diagram: 08/19/16 0415 08/19/16 0430 X-Rays, CTs and MRIs CT ABDOMEN AND PELVIS WITH CONTRAST IMPRESSION: 1. Findings most adjustment of acute pancreatitis; clinical and laboratory confirmation is recommended. No evidence of marilu-pancreatic abscess, nor focal fluid collection. 2. Asbestos-related pleural disease. 3. Severe right renal atrophy. Dictated by: Kathleen Hodge M.D. on 08/16/2016 at 12:17 PROCEDURE: X-RAY CHEST ONE VIEW, PORTABLE IMPRESSION: Changes suggestive of bibasilar infiltrates. Prominent calcific plaquing. Old asbestos exposure is likely. Approved by: Kenny Basilio M.D. on 08/16/2016 at 17:04 PROCEDURE: US ABDOMEN, LIMITED ([id number]) IMPRESSION: Fair to poor visualization of the gallbladder. Possible mild wall thickening but no pericholecystic fluid is seen. No abnormal contents are seen. Approved by: Kenny Basilio M.D. on 08/17/2016 at 19:48 PROCEDURE: MRI ABDOMEN WITHOUT CONTRAST IMPRESSION: 1. Acute pancreatitis. 2. Possible small partially obstructing distal common bile duct calculus. This could be further assessed with ERCP, if clinically indicated. 3. Right greater than left basilar pneumonia with small bilateral pleural effusions. 4. Small amount of ascites. 5. Possible gallbladder wall thickening, which could indicate cholecystitis. This could be further assessed with ultrasound, if clinically indicated. 6. Findings discussed with Dr. Tee Baez on 08.17.16 at 1623 hrs. Approved by: Kathleen Hodge M.D. on 08/17/2016 at 16:23 PROCEDURE: US ABDOMEN, LIMITED IMPRESSION: Fair to poor visualization of the gallbladder. Possible mild wall thickening but no pericholecystic fluid is seen. No abnormal contents are seen. Approved by: Kenny Basilio M.D. on 08/17/2016 at 19:48 PROCEDURE: X-RAY CHEST ONE VIEW, PORTABLE IMPRESSION: 1. Pleural plaque redemonstrated consistent with asbestos related pleural disease. 2. Mid/basilar airspace opacities and small pleural effusions consistent with compressive atelectasis versus pneumonia. Transcribed by: TINA on 08/18/2016 at 10:05 12-lead ECG Anterior STEMI Additional Diagnostics ERCP IMPRESSION: Cholangitis Endoscopic retrograde cholangiopancreatography, status post sphincterotomy and balloon sweep. RECOMMENDATIONS: 1. Start clear liquid diet. 2. Avoid NSAIDs and anticoagulants for 72 hours. 3. Follow LFT's 4. continue antibiotics Assessment & Plan Vicenta Vaughan is an 89 year old man with past medical history significant for asbestosis, aortic bypass at the age of 37, renal artery stent for renal artery stenosis, hypothyroidism, atherosclerotic cerebrovascular disease, status post right carotid endarterectomy who presented to the [facility] ED via EMS due to severe abdominal pain under treatment for severe pancreatitis, sepsis complicated by anterior STEMI. Acute pancreatitis with choledocholithiasis, present on admission, active. -Lipase significantly elevated and evidence of pancreatitis on CT, however etiology is not quite clear and likely multifactorial. The patient does admit to some alcohol use but his LFTs were initially normal and his liver contour is normal as well. Of note his MCV is quite elevated which can indicated megaloblastic anemia but can also be seen in non-megaloblastic anemia secondary to direct toxicity of EtOH on the bone marrow. He denies any medication changes and none of his chronic medications seem to be culprits for pancreatitis. MRCP showed small partially obstructing distal common bile duct calculus. ERCP revealed Cholangitis. -Elevated WBC, liver enzymes, CRP, procalcitonin, and lactic acid with worsening renal function. -Continue Zofran for nausea management -Gastroenterology consulted and following. Their time and recommendations are appreciated -The patient has been transitioned to comfort care. His antibiotics have been stopped. -Morphine, Ativan, Haldol, Scopolamine for comfort Acute hypercapnic respiratory failure, not present on admission, active -Patient intermittently on BPAP as comfortable Anterior wall STEMI, not present on admission, active -Discussed the patient with Dr. Tyson who did not believe the patient to be good candidate for cardiac cath given his recent ERCP and renal failure -Heparin stopped for transition to comfort care Acute sepsis, active. -Met criteria with WBC 25.8 and heart rate of 100 bpm and elevated lactic acid and possible pneumonia and probable cholecystitis -The patient has been transitioned to comfort care. His antibiotics have been stopped. Cholangitis, active. -Abdominal ultrasound and MRCP showed mild gallbladder wall thickening -The patient has been transitioned to comfort care. His antibiotics have been stopped. Possible community acquired or aspiration pneumonia, present on admission, active. -Chest x-ray shows bibasilar infiltrates and he have increasing WBC, CRP, procalcitonin, and lactic acid. However, lungs were clear to auscultation and no cough or dyspnea yesterday. Wheezing heard today with increased oxygen demand. Chest x-ray today shows worsening right pleural effusion, likely secondary to acute pancreatitis. 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 -Secondary to chronic alcohol use and above choledocholithiasis History of pulmonary asbestosis -Chest X ray as above Hypothyroidism Atherosclerotic cerebrovascular disease, status post right carotid endarterectomy History of renal artery stent for renal artery stenosis -Likely his elevated Cr is due to essentially a solitary kidney since one of his kidneys has atrophied CODE STATUS: DNR/DNI Disposition: Comfort care. Anticipate the patient will pass in the next 24 hours. GI Prophylaxis: H2 verito VTE Mechanical Devices: Intermittant Pneumatic CD Resuscitation Status: DNR/DNI:Do Not Resuscitate/Intubate Time spent 45 minutes Attending Statement I have seen and evaluated patient at bedside in addition to directly supervising care provided by resident physician. I agree with above documentation. I communicated with daughter/PHAM Marlow through the day as patient's condition evolved. It was clear from the beginning of admission pt did not want to peruse heroic measures at sacrifice of comfort without a reasonable probability of a recovery from these multiple condition. As the DX of acute PA complicated an already medically complex patient suffering from septic pancreatitis with cholangitis, decision to proceed toward comfort measures rather than more aggressive therapies requiring pressor support, central line placement, and continued respiratory support. Pt was accompanied by many family, case discussed extensively with POA and other siblings who all agree with current plan of care being in accordance with patient wishes. Deanna Tang DO Aug 19, 2016 18:20 Luiz Bergman DO Aug 20, 2016 08:49
--- NOTE | 2016-08-19 18:20 | NUR ---
Comfort Care.. Noted this am to have EKG ST elevation on am EKG. Echo was in progress and wall motion abnormalities noted on scan. Dr Bauer notified and here to see pt. Pt had poor IV access and family was notified about need for PICC or central line placement. They were unsure initially re placement and upon arrival at the hospital were informed of pt's worsening cardiac issues. Lab draws were delayed as lab was unable to obtain draws and pt was not a candidate for PICC due to small vessels. Family did not want pt to have any more lab attempts until they could speak with MD. MD's discussed the options in room with family and pt and the pt chose not to pursue further treatment and be made comfort care. Has had no uop this shift and bladder scan reveals empty bladder. Family has gathered at the bedside and pt remains coherent enough to talk with them. He has denied any pain or SOB and has alternated between bipap and NRB mask. I have informed family and pt of pain/ sedation options should he need them.
[2016-08-19] MEDS ORDERED: Morphine 100 mg/100 mL NS 100 MG in IV Premix 1 EACH IV SCH (21:30)
[2016-08-19] MEDS ORDERED: Artificial Tears 15 mL Ophthalmic Solution AFFECT_EYE PRN (21:30)
[2016-08-19] MEDS ORDERED: Ondansetron 2 mg/mL 2 mL Inj IVPUSH PRN (21:30)
[2016-08-19] MEDS ORDERED: Atropine 1% 5 mL Ophthalmic Solution PO PRN (21:30)
[2016-08-20 00:49] VITALS: BP 85/31; PULSE 44; RESP 15; O2SAT 84
--- NOTE | 2016-08-20 05:04 | NUR ---
Room Transfer/Comfort Care Transferred to room 2002 from 2012@ 2100, 08/19/16. On comfort care, room air, no tele, Started Morphine gtt @ 1 mL/hr. NS @ tko, rt. AC IV. Respiration rate @ o430 was 30 BPM. Pt has not shown any S/S discomfort or distress. Organ donor referral service notified @ 4209, we are to notify them again at time of . Family in room ,
--- NOTE | 2016-08-20 07:00 | NUR ---
Comfort Care Adult children at bedside. Pt RR 30 and shallow. HR 88. Pt appears to be in no distress. Morphine drip @ 1ml/hr. Updated family of status overnight. Will continue to monitor
--- NOTE | 2016-08-20 15:15 | NUR ---
Comfort Care/Pt Expiration Pt's family notified RN that pt had . Pt HR and RR were assessed and time of was placed at 1032. Pt's family at bedside were able to give this RN home information. All necessary parties were notified per protocols. Pt's family were able to spend several hours with the as needed. Pt's personal belongings were gathered and sent home with his daughter Ele, including 2 gold rings. Pt's body was prepared for transport, IV's were dc'd. body was picked up by home at approximately 1330.
--- NOTE | 2016-08-20 15:32 | PCM.DC.MED ---
Discharge Summary Date of Service Aug 20, 2016 Dates of Hospitalization Date of Hospital Admission Aug 16, 2016 at 13:51 Date of Discharge: Aug 20, 2016 Providers: Admitting Physician: Luiz Bergman DO Primary Care Physician: Ankit Eaton MD Attending Physician: Luiz Bergman DO Diagnosis at Time of Discharge Diagnosis at Time of Discharge Acute pancreatitis with choledocholithiasis, present on admission, active. Acute hypercapnic respiratory failure, not present on admission, active Anterior wall STEMI, not present on admission, active Acute sepsis, active. Cholangitis, active. Possible community acquired or aspiration pneumonia, present on admission, active. 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 History of pulmonary asbestosis Hypothyroidism Atherosclerotic cerebrovascular disease, status post right carotid endarterectomy History of renal artery stent for renal artery stenosis Consultations Benjy Mcbride MD (infectious disease) Nav Johnson MD (gastroenterology) Procedures XRay, CTs & MRIs CT ABDOMEN AND PELVIS WITH CONTRAST IMPRESSION: 1. Findings most adjustment of acute pancreatitis; clinical and laboratory confirmation is recommended. No evidence of marilu-pancreatic abscess, nor focal fluid collection. 2. Asbestos-related pleural disease. 3. Severe right renal atrophy. Dictated by: Kathleen Hodge M.D. on 08/16/2016 at 12:17 PROCEDURE: X-RAY CHEST ONE VIEW, PORTABLE IMPRESSION: Changes suggestive of bibasilar infiltrates. Prominent calcific plaquing. Old asbestos exposure is likely. Approved by: Kenny Basilio M.D. on 08/16/2016 at 17:04 PROCEDURE: US ABDOMEN, LIMITED ([id number]) IMPRESSION: Fair to poor visualization of the gallbladder. Possible mild wall thickening but no pericholecystic fluid is seen. No abnormal contents are seen. Approved by: Kenny Basilio M.D. on 08/17/2016 at 19:48 PROCEDURE: MRI ABDOMEN WITHOUT CONTRAST IMPRESSION: 1. Acute pancreatitis. 2. Possible small partially obstructing distal common bile duct calculus. This could be further assessed with ERCP, if clinically indicated. 3. Right greater than left basilar pneumonia with small bilateral pleural effusions. 4. Small amount of ascites. 5. Possible gallbladder wall thickening, which could indicate cholecystitis. This could be further assessed with ultrasound, if clinically indicated. 6. Findings discussed with Dr. Tee Baze on 08.17.16 at 1623 hrs. Approved by: Kathleen Hodge M.D. on 08/17/2016 at 16:23 PROCEDURE: US ABDOMEN, LIMITED IMPRESSION: Fair to poor visualization of the gallbladder. Possible mild wall thickening but no pericholecystic fluid is seen. No abnormal contents are seen. Approved by: Kenny Basilio M.D. on 08/17/2016 at 19:48 PROCEDURE: X-RAY CHEST ONE VIEW, PORTABLE IMPRESSION: 1. Pleural plaque redemonstrated consistent with asbestos related pleural disease. 2. Mid/basilar airspace opacities and small pleural effusions consistent with compressive atelectasis versus pneumonia. Transcribed by: TINA on 08/18/2016 at 10:05 Other Diagnostics ERCP IMPRESSION: Cholangitis Endoscopic retrograde cholangiopancreatography, status post sphincterotomy and balloon sweep. RECOMMENDATIONS: 1. Start clear liquid diet. 2. Avoid NSAIDs and anticoagulants for 72 hours. 3. Follow LFT's 4. continue antibiotics Brief History From H&P by Dr. Tang dated 08/16/16: Mr. Vicenta Vaughan is a pleasant 89 year old gentleman with a history of daily alcohol intake, aortic bypass grafting at age 37y, asbestosis, right renal atrophy due to renal artery stenosis secondary to renal vascular disease, and atherosclerotic cerebrovascular disease s/p right CEA, that presented to [facility] 08/16 with acute onset of severe sharp, stabbing abdominal pain, nausea, vomiting, and decreased oral intake. He was admitted for acute pancreatitis. GI was consulted for further evaluation and treatment of acute pancreatitis, elevated liver enzymes, and abdominal pain. He states this abdominal pain is new, and he has no history of similar. Denies any history of GI issues other than occasional reflux. States the pain is sharp , stabbing, intermittent, diffuse, but notably of epigastric region. Admits to associated decreased po intake, nausea, and 1-2 episodes of vomiting. No emesis or diarrhea noted since admission. States he has not had a BM in recent 4-5 days. No recent history of diarrhea, fever, chills, sick contacts. Lives at [place]. Reports previous episode of flu-like symptoms many weeks ago, of which, he believes he was prescribed an antibiotic. Does not wear O2 at baseline. Does not currently feel SOB at rest, unless he is experiencing an episode of his abdominal pain. He states that he has been drinking alcohol daily for the recent 10-12 years since his , totalling a shot-glass sized amount of whiskey mixed with water. He denies consuming amounts larger than this. He stopped smoking 'many years ago.' He states he has a history of unremarkable colonoscopies, and does not recall a history of EGD. Denies any blood transfusions, autoimmune disorders, history of gallstones or pancreatitis. States his aortic bypass was secondary to his aorta being 'clogged up.' His initial symptoms were inability to walk. He was a smoker at that time. GI consulted to evaluate abdominal pain, elevated LFTs, elevated lipase; possible worsening pancreatitis. Hospital Course Medical summary: Ongoing treatment at time of passing: Acute pancreatitis with choledocholithiasis, present on admission, active. -Lipase significantly elevated and evidence of pancreatitis on CT, however etiology is not quite clear and likely multifactorial. The patient does admit to some alcohol use but his LFTs were initially normal and his liver contour is normal as well. Of note his MCV is quite elevated which can indicated megaloblastic anemia but can also be seen in non-megaloblastic anemia secondary to direct toxicity of EtOH on the bone marrow. He denies any medication changes and none of his chronic medications seem to be culprits for pancreatitis. MRCP showed small partially obstructing distal common bile duct calculus. ERCP revealed Cholangitis. -Elevated WBC, liver enzymes, CRP, procalcitonin, and lactic acid with worsening renal function. -Continue Zofran for nausea management -Gastroenterology consulted and following. Their time and recommendations are appreciated -The patient has been transitioned to comfort care. His antibiotics have been stopped. -Morphine, Ativan, Haldol, Scopolamine for comfort Acute hypercapnic respiratory failure, not present on admission, active -Patient intermittently on BPAP as comfortable Anterior wall STEMI, not present on admission, active -Discussed the patient with Dr. Tyson who did not believe the patient to be good candidate for cardiac cath given his recent ERCP and renal failure -Heparin stopped for transition to comfort care Acute sepsis, active. -Met criteria with WBC 25.8 and heart rate of 100 bpm and elevated lactic acid and possible pneumonia and probable cholecystitis -The patient has been transitioned to comfort care. His antibiotics have been stopped. Cholangitis, active. -Abdominal ultrasound and MRCP showed mild gallbladder wall thickening -The patient has been transitioned to comfort care. His antibiotics have been stopped. Possible community acquired or aspiration pneumonia, present on admission, active. -Chest x-ray shows bibasilar infiltrates and he have increasing WBC, CRP, procalcitonin, and lactic acid. However, lungs were clear to auscultation and no cough or dyspnea yesterday. Wheezing heard today with increased oxygen demand. Chest x-ray today shows worsening right pleural effusion, likely secondary to acute pancreatitis. 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 -Secondary to chronic alcohol use and above choledocholithiasis History of pulmonary asbestosis -Chest X ray as above Hypothyroidism, chronic. Atherosclerotic cerebrovascular disease, status post right carotid endarterectomy, chronic. History of renal artery stent for renal artery stenosis -Likely his elevated Cr is due to essentially a solitary kidney since one of his kidneys has atrophied Exam Vital Signs (Last) Date Time Temp Pulse Resp B/P Pulse Ox O2 Delivery O2 Flow Rate FiO2 08/20/16 00:49 44 15 85/31 84 Room Air 08/19/16 12:00 50 08/19/16 08:00 36.7 08/19/16 04:00 10.00 Test 08/16/16 10:38 08/16/16 18:35 08/17/16 05:45 08/17/16 14:00 Prothrombin Time 10.4sec (8.1-12.5) Prothromb Time International Ratio 0.97ratio Magnesium Level 2.0mg/dL (1.6-2.6) Urine Color Yellow (YELLOW) Urine Appearance Clear (CLEAR,HAZY) Urine pH 5.0 (5.0-8.0) Urine Specific [place] 1.015 (1.003-1.035) Urine Protein Negativemg/dL (NEG,TRACE) Urine Glucose (UA) Negativemg/dL (NEGATIVE) Urine Ketones Negativemg/dL (NEGATIVE) Urine Occult Blood Small (NEGATIVE) Urine Nitrite Negative (NEGATIVE) Urine Bilirubin Negative (NEGATIVE) Urine Urobilinogen Normalmg/dL (NORMAL) Urine Leukocyte Esterase Trace (NEGATIVE) Urine RBC 0-2/hpf (0-2) Urine WBC 0-5/hpf (0-5) Urine Epithelial Cells Few/hpf (NONE-MOD) Urine Crystals None seen (NONE SEEN) Urine Bacteria Few/hpf (NONE-FEW) Urine Hyaline Casts None/lpf (NONE) Urine Granular Casts None seen (NONE SEEN) Urine Waxy Casts None seen (NONE SEEN) Urine Red Blood Cell Casts None seen (NONE SEEN) Urine White Blood Cell Casts None seen (NONE SEEN) Urine Mucus None seen (None Seen) Urine Trichomonas None seen (NONE SEEN) Urine Yeast None (NONE SEEN) Urinalysis Comment None Triglycerides Level 67mg/dL (0-149) Cholesterol Level 126mg/dL (100-199) LDL Cholesterol, Calculated 57.600mg/dL (0-99) VLDL Cholesterol 13.400mg/dL HDL Cholesterol 55mg/dL (>39) Cholesterol/HDL Ratio 2.29 (0.0-4.4) C-Reactive Protein 14.1mg/dL (0.0-0.5) Test 08/18/16 05:30 08/19/16 01:15 08/19/16 04:15 08/19/16 04:30 Lipase 747U/L (13-60) Lactic Acid Level 1.9mmol/L (0.4-2.0) Troponin T 6.53ug/L (0.0-0.011) White Blood Count 15.1th/mm3 (3.8-10.1) Red Blood Count 3.65mil/mm3 (4.40-5.80) Hemoglobin 12.5g/dL (13.8-17.2) Hematocrit 40.8% (41.0-50.0) Mean Corpuscular Volume 111.8fL (81-100) Mean Corpuscular Hemoglobin 34.2pg (27.0-35.0) Mean Corpuscular Hemoglobin Concent 30.6% (32.0-37.0) Red Cell Distribution Width 15.2% (12.3-15.4) Platelet Count 128bil/L (150-400) Neutrophils (%) (Auto) 63% (40-74) Lymphocytes (%) (Auto) 16% (14-46) Monocytes (%) (Auto) 5% (4-12) Eosinophils (%) (Auto) 0% (0-5) Basophils (%) (Auto) 0% (0-3) Band Neutrophils % 15% (1-5) Metamyelocytes % 1% (0-0) Nucleated Red Blood Cells 1/100 WBC (0-24) Activated Partial Thromboplast Time 32.2sec (22.8-33.0) Sodium Level 142mEq/L (134-144) Potassium Level 5.9mEq/L (3.5-5.2) Chloride Level 110mEq/L (97-108) Carbon Dioxide Level 19mmol/L (18-29) Blood Urea Nitrogen 43mg/dL (8-27) Creatinine 2.31mg/dL (0.76-1.27) Estimat Glomerular Filtration Rate 28mL/min (>59) Glucose Level 61mg/dL (60-99) Calcium Level 7.7mg/dL (8.5-10.1) Total Bilirubin 0.9mg/dL (0.0-1.2) Aspartate Amino Transf (AST/SGOT) 203U/L (0-50) Alanine Aminotransferase (ALT/SGPT) 68U/L (0-44) Alkaline Phosphatase 88U/L (25-160) Total Protein 5.3g/dL (6.4-8.4) Albumin 2.7g/dL (3.4-5.0) Procalcitonin 4.71ng/mL (0.00-0.08) Discharge Medications Discharge Medications Aspirin (Aspirin) 81 Mg Tablet 81 MG PO DAILY (Reported) Atorvastatin Calcium (Atorvastatin Calcium) 40 Mg Tablet 40 MG PO HS (Reported) Cholecalciferol (Vitamin D3) (Vitamin D) 1,000 Unit Tablet 1,000 UNIT PO QAM ( Reported) Levothyroxine (Levothyroxine) 112 Mcg Tablet 112 MCG PO DAILY (Reported) Metoprolol Tartrate (Metoprolol Tartrate) 25 Mg Tablet 25 MG PO BID (Reported) Attending Statement The patient was seen and examined together with Dr. Joseph on 08/20/2016 and I agree with the history, exam and plan as outlined in the note above. . copies to: Ankit Eaton MD, Jennifer E DO Aug 20, 2016 15:31 Juan C Diaz MD Aug 21, 2016 08:48
== END 2016-08-20 10:32 | disposition expired | DRG 871 ==
LOC: SED 10:08 → MPC 13:51 → OSC 08-18 14:37 → PCC 08-19 00:10 → CCU 08-19 03:33 → PCC 08-19 15:43
PROVIDERS: ADMIT Family Medicine; ATTEND Family Medicine
PROC: BF101ZZ Fluoroscopy of Bile Ducts using Low Osmolar Contrast (ICD-10-PCS; 2016-08-18)
PROC: 5A09457 Assistance with Respiratory Ventilation, 24-96 Consecutive Hours, Continuous Positive Airway Pressure (ICD-10-PCS; 2016-08-18)
PROC: 0F798ZZ Dilation of Common Bile Duct, Via Natural or Artificial Opening Endoscopic (ICD-10-PCS; principal; 2016-08-18 16:00)
PROC: 4A033B1 Measurement of Arterial Pressure, Peripheral, Percutaneous Approach (ICD-10-PCS; 2016-08-19)
DX: A41.9 Sepsis, unspecified organism (principal); J96.02 Acute respiratory failure with hypercapnia; I21.09 ST elevation (STEMI) myocardial infarction involving other coronary artery of anterior wall; J18.9 Pneumonia, unspecified organism; K85.90 Acute pancreatitis without necrosis or infection, unspecified; K80.32 Calculus of bile duct with acute cholangitis without obstruction; K80.42 Calculus of bile duct with acute cholecystitis without obstruction; R65.20 Severe sepsis without septic shock; N26.1 Atrophy of kidney (terminal); I10 Essential (primary) hypertension; Z79.82 Long term (current) use of aspirin; E78.5 Hyperlipidemia, unspecified; E03.9 Hypothyroidism, unspecified; Z77.090 Contact with and (suspected) exposure to asbestos; Z87.891 Personal history of nicotine dependence; Z66 Do not resuscitate; I25.10 Atherosclerotic heart disease of native coronary artery without angina pectoris; Z51.5 Encounter for palliative care